=== PATIENT | male | born 1955 | race Caucasian/White ===

== ENCOUNTER 2020-05-17 13:00 | Emergency (ER) | payer MEDICARE, SELFPAY ==
[2020-05-17 14:09] VITALS: BP 119/69; PULSE 82; RESP 18; TEMP 36.8; O2SAT 100; BMI 27.0
[2020-05-17] MEDS: cephALEXin 500 MG CAPSULE PO (14:25)
[2020-05-17] MEDS: predniSONE 20 MG TABLET 60 MG PO (14:25)
[2020-05-17] MEDS: Loratadine 10 MG TABLET PO (14:26)
--- NOTE | 2020-05-17 14:30 | PC.NURSE ---
pt alert and oriented, skin pwd, respirations even and unlabored, pt speaking in full clear sentences, ls clear. pt reports waking up with lower lip, but has a all over body rash that started on Tuesday
[2020-05-17 15:23] LABS: Basophils Percent Auto 0.6 % (0-2); Eosinophils Absolute Auto 0.8 X10*3/uL (0.0-0.4); Eosinophils Percent Auto 11.8 % (0-4); Hematocrit 36.2 % (42-52); Hemoglobin 11.3 g/dl (14.0-18.0); Imm Gran Abs Auto 0.03 X10*3/uL (0.00-0.03); Imm Gran Pct Auto 0.4 % (0.0-0.4); Lymphocytes Absolute Auto 1.1 X10*3/uL (1.2-4.9); Lymphocytes Percent Auto 15.1 % (20-40); MANUAL DIFF FLAG NO; Mean Corpuscular HGB Conc 31.2 g/dl (31.0-36.0); Mean Corpuscular Hemoglobin 27.8 pg (27.0-33.0); Mean Corpuscular Volume 89.2 fL (80-98); Mean Platelet Volume 9.6 fL (9.4-12.4); Monocytes Absolute Auto 0.7 X10*3/uL (0.1-1.2); Monocytes Percent Auto 9.2 % (2-11); Neutrophils Absolute Auto 4.5 X10*3/uL (2.0-8.3); Neutrophils Percent Auto 62.9 % (45-73); Platelet Count 240 X10*3/uL (160-400); Red Blood Count 4.06 X10*6/uL (4.60-5.80); Red Cell Distribution Width 16.9 % (11.0-16.0); White Blood Count 7.1 X10*3/uL (4.8-10.8)
[2020-05-17 15:45] LABS: Anion Gap 11 (12-20); Blood Urea Nitrogen 13 mg/dL (9-16); Calcium 7.8 mg/dL (8.4-10.2); Carbon Dioxide 29 mmol/L (22-29); Chloride 103 mmol/L (96-108); Creatinine Clr Calc Pharmacy 81.5; Estimated Glomerular Filt Rate > 60; Glucose Random 88 mg/dL (60-115); Potassium 3.9 mmol/l (3.3-5.1); Sodium 139 mmol/L (135-145)
[2020-05-17 16:04] VITALS: BP 128/76; PULSE 71; RESP 18; O2SAT 98
--- NOTE | 2020-05-17 16:05 | PC.NURSE ---
pt resting in the stretcher, in no apparent distress at this time, pt reports no improvement after the medication, rash still itchy, no visible change in lip swelling at this time,
--- NOTE | 2020-05-17 16:11 | ED.ALLEREA ---
HPI - Allergic Reaction General Chief complaint: Allergic Reaction Stated complaint: rash Time Seen by Provider: 05/17/20 13:47 History of Present Illness HPI narrative: Patient with 2 complaints 1st complaint is lower lip swelling 1st noted yesterday with no shortness of breath no other facial swelling no swelling inside the throat or the tongue or the mouth no difficulty swallowing Other complaint is several days of an itchy scabby rash on his legs which she has been scratching a lot, both legs have chronic circulatory problems with chronic discolorations and swelling for which she has been followed for a long time, he denies fever denies chills denies pain denies dizziness or weakness Related Data Previous Rx's Medication Instructions Recorded cephalexin [Keflex] 500 mg PO QID 7 Days #28 cap 05/17/20 cetirizine 10 mg PO DAILY 10 Days #10 cap 05/17/20 diphenhydramine HCl [Benadryl] 50 mg PO BEDTIME PRN #20 cap 05/17/20 prednisone 20 mg PO DAILY 6 Days #6 tab 05/17/20 Allergies Allergy/AdvReac Type Severity Reaction Status Date / Time No Known Allergies Allergy Verified 05/17/20 14:14 Review of Systems Review of Systems: Positive for lower extremity rash bilaterally and lower lip swelling Negatives No fever no chills no dizziness no weakness no trouble breathing or swallowing no vision changes no headache no chest pain shortness of breath, no abdominal pain, no bowel or bladder changes, no numbness or weakness [facility] Past Medical History Attestation statement: The following information was validated with the patient. [facility] Narrative: Patient has history of rheumatoid arthritis for which he takes methotrexate, long smoking history, is also being treated for hypocalcemia with oral calcium supplementation Medical History (Updated 05/17/20 @ 16:29 by ZAMZAM Landeros) Arthritis Surgical History (Updated 05/17/20 @ 14:13 by Effie Schaefer) History of back surgery Hx of neck surgery Social History Social History Alcohol intake: never Smoking Status: Current every day smoker Use of substances other than those prescribed or required for medical reasons: No Advance Directives: No Advance Directives Information Provided: No Physical Exam Vital Signs: Vital Signs: Last Vital Signs Temp 98.3 F 05/17/20 14:09 Pulse 71 05/17/20 16:04 Resp 18 05/17/20 16:04 BP 128/76 05/17/20 16:04 Pulse Ox 98 05/17/20 16:04 Body Mass Index 27.0 Patient is A&O x3 comfortable relaxed cooperative no acute distress The lower lip is swollen but there is no swelling inside the mouth the tongue and pharynx are normal and on swollen, he swallows secretions easily breathes easily speaks full sentences in a normal voice, pharynx is clear with no redness or swelling The neck is supple without lymphadenopathy The chest is clear to auscultation bilaterally with full symmetrical equal breath sounds, no respiratory distress The heart no murmur auscultated Abdomen soft nontender Extremities both extremities are mildly swollen with mild edema and bilateral mild redness, there are multiple small scabbed area with on both legs there are 2 larger excoriated scabbed areas on the right leg, there is no calf swelling or tenderness on either leg, ankle and knee joints have full range of motion, there are no bullae, no blisters, no petechia Neuro no focal deficit Course Course Course Narrative: Case was discussed with Dr. Raymundo who agrees rash is most likely allergic as it is associated with the lower lip swelling, the patient is very comfortable Dr. Raymundo recommended antibiotic as well as treatment for allergy as it was very hard to tell if any of the redness on his legs was new so he is treated with Keflex antibiotic as well as prednisone and antihistamine for rash and lower lip swelling Patient was observed in the ER for 2 hours with no progress of his lower lip swelling he remained comfortable with no further swelling, re-examine lungs were clear with full equal symmetrical breath sounds patient is speaking full sentences and exam of his pharynx again was normal with no swelling of tongue or pharynx MDM - Allergic Reaction Lab Data Attestation: I reviewed the patient's lab results. Result diagrams: 05/17/20 15:18 05/17/20 15:18 Labs: Lab Results 05/17/20 05/17/20 Range/Units 15:18 15:18 WBC 7.1 (4.8-10.8) X10*3/uL RBC 4.06 L (4.60-5.80) X10*6/uL Hgb 11.3 L (14.0-18.0) g/dl Hct 36.2 L (42-52) % MCV 89.2 (80-98) fL MCH 27.8 (27.0-33.0) pg MCHC 31.2 (31.0-36.0) g/dl RDW 16.9 H (11.0-16.0) % Plt Count 240 (160-400) X10*3/uL MPV 9.6 (9.4-12.4) fL Immature Gran % (Auto) 0.4 (0.0-0.4) % Neut % (Auto) 62.9 (45-73) % Lymph % (Auto) 15.1 L (20-40) % [place] % (Auto) 9.2 (2-11) % Eos % (Auto) 11.8 H (0-4) % Baso % (Auto) 0.6 (0-2) % Lymph # (Auto) 1.1 L (1.2-4.9) X10*3/uL [place] # (Auto) 0.7 (0.1-1.2) X10*3/uL Eos # (Auto) 0.8 H (0.0-0.4) X10*3/uL Baso # (Auto) 0.0 (0.0-0.2) X10*3/uL Abs Immat Gran (auto) 0.03 (0.00-0.03) X10*3/uL Absolute Neuts (auto) 4.5 (2.0-8.3) X10*3/uL Absolute Nucleated RBC 0.000 (0.0-0.012) X10*3/uL Nucleated RBC % (auto) 0.0 (0.0-0.2) /100WBC Sodium 139 (135-145) mmol/L Potassium 3.9 (3.3-5.1) mmol/l Chloride 103 (96-108) mmol/L Carbon Dioxide 29 (22-29) mmol/L Anion Gap 11 L (12-20) BUN 13 (9-16) mg/dL Creatinine 0.85 (0.5-1.4) mg/dL Estim Creat Clear Calc 81.5 Estimated GFR > 60 Random Glucose 88 (60-115) mg/dL Calcium 7.8 L (8.4-10.2) mg/dL Discharge Plan Discharge Clinical Impression: Allergic reaction Qualifiers: Encounter type: initial encounter Qualified Code(s): T78.40XA - Allergy, unspecified, initial encounter Patient Disposition: Home, Self-Care Additional Instructions: We believe the itchy rash and the lower lip swelling may be an allergic reaction We are treating with antibiotic for possible skin infection in her lower leg as well as prednisone and cetirizine for possible allergic reaction causing rash and lip swelling Follow with primary doctor for re-evaluation next week Return to ER immediately for any worse facial swelling, difficulty breathing, fever, worse pain and swelling in legs any worse condition or any concerns Prescriptions: New prednisone 20 mg tablet 20 mg PO DAILY 6 Days Qty: 6 RF: 0 cetirizine 10 mg capsule 10 mg PO DAILY 10 Days Qty: 10 RF: 0 cephalexin [Keflex] 500 mg capsule 500 mg PO QID 7 Days Qty: 28 RF: 0 diphenhydramine HCl [Benadryl] 25 mg capsule 50 mg PO BEDTIME PRN (Reason: itching) Qty: 20 RF: 0 Interventions: ED Discharge Assessment Last Done: 05/17/20 16:53 Discharge Date/Time: 05/17/20 17:16
== END 2020-05-17 17:16 | disposition home or self-care (01) ==
PROVIDERS: Physician Assistant Medical; Emergency Provider Emergency Medicine; PCP Internal Medicine
DX: L23.9 Allergic contact dermatitis, unspecified cause (principal); F17.200 Nicotine dependence, unspecified, uncomplicated; Z71.6 Tobacco abuse counseling; Z79.899 Other long term (current) drug therapy
CPT/HCPCS: 36415; 80048; 85025; 99283; 99284

== ENCOUNTER 2020-08-05 10:05 | Outpatient (REF) | payer MEDICARE, SELFPAY ==
--- NOTE | ~2020-08-05 | XR_ITS ---
EXAMINATION: XR SHOULDER, RIGHT CLINICAL INFORMATION: Pain right shoulder COMPARISON: None TECHNIQUE: AP external rotation, Grashey, scapular Y, and axillary views of the right shoulder. FINDINGS: There is a displaced fracture right acromion best visualized on axial view. The glenohumeral articulation and the AC joint articulation is maintained normal. The soft tissues are normal XR/XR shoulder RT min 2V IMPRESSION: Mild displaced fracture right acromion. There is no glenohumeral or AC joint dislocation.
== END 2020-08-05 10:06 | disposition home or self-care (01) ==
LOC: HO.HOSX 10:05
PROVIDERS: Visit Provider Orthopaedic Surgery
DX: M25.511 Pain in right shoulder (principal)
CPT/HCPCS: 73030

== ENCOUNTER → 2020-08-06 09:29 | Outpatient (BNVA) | payer MEDICARE, SELFPAY | PROVIDERS: PCP Internal Medicine; Visit Provider Orthopaedic Surgery | DX: S42.124A Nondisplaced fracture of acromial process, right shoulder, initial encounter for closed fracture (principal) | CPT/HCPCS: 99202 ==

== ENCOUNTER 2021-05-05 18:18 | Emergency (ER) | payer MEDICARE, SELFPAY ==
[2021-05-05 18:44] VITALS: BP 146/78; PULSE 74; RESP 16; TEMP 37; O2SAT 97; BMI 22.4
--- NOTE | 2021-05-05 20:10 | ED.WEAKNESS ---
HPI - Weakness General Chief complaint: Weakness Stated complaint: weakness vomiting Time Seen by Provider: 05/05/21 20:10 Source: patient Mode of arrival: ambulatory Limitations: no limitations History of Present Illness HPI Narrative: Patient is on 10 mg oxycodone 3 times a day for chronic back pain been vomiting and having diarrhea for last 2 days today he says that he spilled the oxycodone in the toilet and flushed by mistake and throwing of more worried about it may be he has withdrawal symptoms from oxycodone complaining of abdominal cramping no fever no chills no upper respiratory symptoms had COVID booster 2 days ago Related Data Previous Rx's Medication Instructions Recorded cephalexin 500 mg capsule (Keflex) 500 mg PO QID 7 Days #28 cap 05/17/20 cetirizine 10 mg capsule 10 mg PO DAILY 10 Days #10 cap 05/17/20 diphenhydramine HCl 25 mg capsule 50 mg PO BEDTIME PRN #20 cap 05/17/20 (Benadryl) prednisone 20 mg tablet 20 mg PO DAILY 6 Days #6 tab 05/17/20 ondansetron 4 mg disintegrating 4 mg PO Q6-8H PRN #7 tab 05/05/21 tablet Allergies Allergy/AdvReac Type Severity Reaction Status Date / Time No Known Allergies Allergy Verified 05/17/20 14:14 Review of Systems Review of Systems: Yes all other systems are reviewed and are negative PMFSH Past Medical History Medical History Arthritis Hernia of abdominal wall Surgical History History of back surgery Hx of neck surgery Social History Social History Alcohol intake: never Advance Directives: No Advance Directives Information Provided: Yes Current occupation: Right Handed Physical Exam Vital Signs: Vital Signs: Last Vital Signs Temp 98.6 F 05/05/21 18:44 Pulse 74 05/05/21 18:44 Resp 16 05/05/21 18:44 BP 146/78 H 05/05/21 18:44 Pulse Ox 97 05/05/21 18:44 Body Mass Index 22.4 Appearance: Alert. Oriented X3. No acute distress. Eyes: No pallor or icterus ENT: Pharynx normal. Oral Mucosa moist Neck: Normal inspection. Neck supple. CVS: Normal heart rate and rhythm. Pulses normal. Respiratory: No respiratory distress. Equal air entry bilateral, no wheezing/rales/rhonchi Abdomen: Soft and nontender. Bowel sounds are present, no mass palpable, no CVA tenderness Skin: Skin warm and dry. Normal skin color. Normal skin turgor. Extremities: No lower extremity edema. No calf tenderness Neuro: Oriented X 3. No motor deficit. MDM - Weakness Lab Data Result diagrams: 05/05/21 20:37 05/05/21 20:37 Labs: Lab Results 05/05/21 05/05/21 Range/Units 20:37 20:37 WBC 3.7 L (4.8-10.8) X10*3/uL RBC 4.04 L (4.60-5.80) X10*6/uL Hgb 12.1 L (14.0-18.0) g/dl Hct 36.7 L (42.0-52.0) % MCV 90.8 (80.0-98.0) fL MCH 30.0 (27.0-33.0) pg MCHC 33.0 (31.0-36.0) g/dl RDW 15.3 (11.0-16.0) % Plt Count 163 (160-400) X10*3/uL MPV 10.1 (9.4-12.4) fL Immature Gran % (Auto) 0.3 (0.0-0.4) % Neut % (Auto) 70.7 (45-73) % Lymph % (Auto) 16.3 L (20-40) % [place] % (Auto) 10.3 (2-11) % Eos % (Auto) 1.9 (0-4) % Baso % (Auto) 0.5 (0-2) % Lymph # (Auto) 0.6 L (1.2-4.9) X10*3/uL [place] # (Auto) 0.4 (0.1-1.2) X10*3/uL Eos # (Auto) 0.1 (0.0-0.4) X10*3/uL Baso # (Auto) 0.0 (0.0-0.2) X10*3/uL Abs Immat Gran (auto) 0.01 (0.00-0.03) X10*3/uL Absolute Neuts (auto) 2.6 (2.0-8.3) x10*3/uL Absolute Nucleated RBC 0.000 (0.0-0.012) X10*3/uL Nucleated RBC % (auto) 0.0 (0.0-0.2) /100WBC Sodium 137 (135-145) mmol/L Potassium 4.0 (3.3-5.1) mmol/L Chloride 102 (96-108) mmol/L Carbon Dioxide 26 (22-29) mmol/L Anion Gap 13 (12-20) BUN 12 (9-16) mg/dL Creatinine 0.89 (0.5-1.4) mg/dL Estim Creat Clear Calc 84.0 Estimated GFR > 60 Random Glucose 95 (60-115) mg/dL Calcium 8.5 D (8.4-10.2) mg/dL Total Bilirubin 0.4 (0.0-1.0) mg/dL AST 19 (5-37) U/L ALT 22 (0-40) U/L Alkaline Phosphatase 85 (39-117) U/L Total Protein 6.2 L (6.5-8.0) g/dL Albumin 3.7 (3.5-5.0) g/dL Lipase 15 (8-78) U/L Discharge Plan Discharge Clinical Impression: Gastroenteritis Patient Disposition: Home, Self-Care Instructions: Gastroenteritis (ED) Additional Instructions: Drink plenty of fluids Follow up with PCP if not better Nausea medicine as advised Prescriptions: New ondansetron 4 mg tablet,disintegrating 4 mg PO Q6-8H PRN (Reason: nausea and vomiting) Qty: 7 RF: 0 No Action prednisone 20 mg tablet 20 mg PO DAILY 6 Days Qty: 6 RF: 0 cetirizine 10 mg capsule 10 mg PO DAILY 10 Days Qty: 10 RF: 0 cephalexin [Keflex] 500 mg capsule 500 mg PO QID 7 Days Qty: 28 RF: 0 diphenhydramine HCl [Benadryl] 25 mg capsule 50 mg PO BEDTIME PRN (Reason: itching) Qty: 20 RF: 0 Interventions: ED Discharge Assessment Last Done: 05/05/21 22:40 Discharge Date/Time: 05/05/21 22:41
[2021-05-05] MEDS: Morphine Sulfate 4 MG/ML CARTRIDGE IVPUSH (20:40)
[2021-05-05] MEDS: ondansetron HCL 4 MG/2 ML VIAL IVPUSH (20:40)
[2021-05-05] MEDS: 0.9 % Sodium Chloride 1,000 ML 999 ML IVCONT (20:45)
[2021-05-05 20:51] LABS: MANUAL DIFF FLAG NO
[2021-05-05 20:52] LABS: Basophils Percent Auto 0.5 % (0-2); Eosinophils Absolute Auto 0.1 X10*3/uL (0.0-0.4); Eosinophils Percent Auto 1.9 % (0-4); Hematocrit 36.7 % (42.0-52.0); Hemoglobin 12.1 g/dl (14.0-18.0); Imm Gran Abs Auto 0.01 X10*3/uL (0.00-0.03); Imm Gran Pct Auto 0.3 % (0.0-0.4); Lymphocytes Absolute Auto 0.6 X10*3/uL (1.2-4.9); Lymphocytes Percent Auto 16.3 % (20-40); Mean Corpuscular Volume 90.8 fL (80.0-98.0); Mean Platelet Volume 10.1 fL (9.4-12.4); Monocytes Absolute Auto 0.4 X10*3/uL (0.1-1.2); Monocytes Percent Auto 10.3 % (2-11); Neutrophils Absolute Auto 2.6 x10*3/uL (2.0-8.3); Neutrophils Percent Auto 70.7 % (45-73); Platelet Count 163 X10*3/uL (160-400); Red Blood Count 4.04 X10*6/uL (4.60-5.80); Red Cell Distribution Width 15.3 % (11.0-16.0); White Blood Count 3.7 X10*3/uL (4.8-10.8)
[2021-05-05 21:10] LABS: Alanine Aminotransferase 22 U/L (0-40); Albumin Level 3.7 g/dL (3.5-5.0); Alkaline Phosphatase 85 U/L (39-117); Anion Gap 13 (12-20); Aspartate Amino Transferase 19 U/L (5-37); Bilirubin Total 0.4 mg/dL (0.0-1.0); Blood Urea Nitrogen 12 mg/dL (9-16); Calcium 8.5 mg/dL (8.4-10.2); Carbon Dioxide 26 mmol/L (22-29); Chloride 102 mmol/L (96-108); Estimated Glomerular Filt Rate > 60; Glucose Random 95 mg/dL (60-115); Lipase 15 U/L (8-78); Sodium 137 mmol/L (135-145); Total Protein 6.2 g/dL (6.5-8.0)
[2021-05-05] MEDS: oxyCODONE HCl Immed Release 5 MG TABLET 10 MG PO (22:09)
--- NOTE | 2021-05-05 22:34 | PC.NURSE ---
Since arrival the pt has remained alert and orineted x 3. He arrived for evaluation of nausea and vomiting and diarrhea. While in the ED he received morphoine and Zofran and had good relief of his symptoms. he expressed concern regarding whether or not he may be withdrawing from oxycodone. He has been informed by ER MD that he likely is not and he vrebalizes an understanding of this. no chest pain. No SOb. DC'd at this time. pt is in wheelchair in waiting room waiting for his to pick him up.
== END 2021-05-05 22:41 | disposition home or self-care (01) ==
PROVIDERS: Emergency Provider Internal Medicine; PCP Physician Assistant Medical
DX: K52.9 Noninfective gastroenteritis and colitis, unspecified (principal); R53.1 Weakness; R11.10 Vomiting, unspecified; G89.29 Other chronic pain; Z79.891 Long term (current) use of opiate analgesic
CPT/HCPCS: 36415; 80053; 83690; 85025; 96361; 96374; 96375; 99284; J2270; J2405

== ENCOUNTER 2022-08-25 20:18 | Inpatient (IN) | payer MEDICARE, SELFPAY ==
--- NOTE | ~2022-08-25 | CT_ITS ---
EXAMINATION: CT ABDOMEN AND PELVIS WITH CONTRAST CLINICAL INFORMATION: Epigastric pain COMPARISON: 07/09/2014 TECHNIQUE: Multidetector volumetric images were obtained from the superior aspect of the liver through the pubic symphysis following administration 85 mL of Omnipaque 350 intravenous contrast. Sagittal and coronal reformatted images were obtained on the technologist's workstation. Oral contrast: No This CT examination was performed using dose optimization techniques as appropriate, variously including the following: *Automated exposure control *Adjustment of mA and/or kV according to patient size (this includes techniques or standardized protocols for targeted exams where dose is matched to indication/reason for exam; i.e. extremities or head) *Use of iterative reconstruction technique DLP: 669 mGy-cm FINDINGS: LUNG BASES: Multifocal regions of opacity are present in the bilateral lower lobes and left upper lobe. LIVER, GALLBLADDER, AND BILIARY TREE: The liver is normal in size, shape, and attenuation. No focal hepatic lesion or biliary ductal dilatation is present. The gallbladder is distended with no evidence of radiopaque gallstones, gallbladder wall thickening, or obvious pericholecystic inflammatory changes. PANCREAS: Unremarkable. SPLEEN: Unremarkable. ADRENAL GLANDS: Unremarkable. KIDNEYS AND URETERS: No hydronephrosis or obstructing calculus bilaterally. There are numerous calculi throughout both kidneys measuring up to approximately 0.9 cm in diameter. Numerous hypoattenuating bilateral renal lesions are also present, favoring cysts. However, there is a 1.2 cm exophytic lesion off the lateral right kidney on image 29/87 which is not cystic by CT criteria and does not present previously; solid masses cannot be excluded. BLADDER: Unremarkable. GASTROINTESTINAL TRACT: There is prominent distention of the stomach with gas and fluid as well as dilation of multiple small bowel loops throughout the abdomen in a pattern consistent with small bowel obstruction. Transition from dilated to collapsed small bowel is suspected to occur in the left abdomen as seen on coronal image 35. Colon is nondilated and partially collapsed. No free fluid or free air is seen. ABDOMINAL WALL: No significant hernia is appreciated. LYMPH NODES: Normal. VASCULAR: Scattered atherosclerotic calcifications. PELVIC VISCERA: Unremarkable. OSSEOUS STRUCTURES: Partially visualized thoracolumbar spinal fusion hardware. Chronic-appearing multilevel compression deformities. Right hip arthroplasty hardware noted. CT/CT abdomen pelvis w IV con IMPRESSION: 1. Small bowel obstruction with transition point suspected to lie in the left abdomen. 2. Numerous bilateral renal calculi without hydronephrosis. 3. Numerous hypoattenuating bilateral renal lesions, favoring cysts. However, there is also a 1.2 cm exophytic lesion off the lateral right kidney which is not cystic by CT criteria and does not present previously; solid mass cannot be excluded. Further workup with renal protocol CT or MRI is recommended. 4. Multifocal regions of pulmonary opacity in the bilateral lower lobes and left upper lobe, which may at least partially be due to atelectasis though some superimposed consolidation such as from pneumonia or aspiration may also be present.
--- NOTE | ~2022-08-25 | XR_ITS ---
EXAMINATION: XR CHEST CLINICAL INFORMATION: Chest pain. COMPARISON: 05/13/2008 chest radiographs. TECHNIQUE: Frontal view of the chest was obtained. FINDINGS: Support devices: Multilevel posterior fusion hardware is seen. Kyphotic positioning and low lung volumes and evaluation. There is mild elevation of the left hemidiaphragm. The lungs appear clear. The heart and mediastinal structures are unremarkable. XR/XR chest 1V IMPRESSION: Limited study. No overt CHF or pneumonia.
--- NOTE | ~2022-08-25 | XR_ITS ---
EXAMINATION: XR CHEST CLINICAL INFORMATION: Dyspnea COMPARISON: Chest radiograph 08/25/2022 TECHNIQUE: Frontal view of the chest was obtained. FINDINGS: Bilateral fractured thoracic interlocking spinal rods and multilevel transpedicular screws are noted. Low lung volumes are present with the fourth anterior rib segments terminating projection with the lung bases. The cardiac silhouette is grossly normal in size. No definitive effusions or pneumothoraces are identified. An enteric tube terminates projection with the gastric body. Left lung base spine pulmonary reticular opacities are noted with associated mild vascular indistinctness. Findings are new compared with 08/25/2022. XR/XR chest 1V IMPRESSION: 1. Low lung volumes. 2. Mild left lung base atelectasis and/or consolidation new compared with 08/25/2022. Findings could represent aspiration pneumonitis. 3. Enteric tube terminating within the gastric body.
--- NOTE | ~2022-08-25 | XR_ITS ---
EXAMINATION: XR chest 1V CLINICAL INFORMATION: Shortness of breath COMPARISON: 08/28/2022 TECHNIQUE: XR chest 1V Tubes and lines: Hardware posterior fusion of the dorsal spine in place intact. Lungs and pleura: Redemonstration of diffuse patchy interstitial opacification over the right and left lung suggesting diffuse interstitial infiltrates. There is atelectasis at lung bases. Mild subpulmonic pleural effusions. Heart and mediastinum: The mediastinum is within normal limits.. Bones/soft tissue: Skeletal structures included are normal for patient's age. XR/XR chest 1V IMPRESSION: * Redemonstration of bilateral diffuse interstitial opacification suggesting diffuse interstitial infiltrates. * Atelectasis at lung bases. * Mild subpulmonic pleural effusions.
[2022-08-25 20:28] VITALS: BP 105/72; PULSE 143; RESP 16; TEMP 35.9; O2SAT 91; BMI 31.2
--- NOTE | 2022-08-25 20:29 | ED_ITS ---
HPI - General Adult General Chief complaint: General Medical <Brian HinaCornell - Last Filed: 08/25/22 20:46> Stated complaint: stomach ache for 4 days, vomiting <Brian HinaBollinger - Last Filed: 08/25/22 20:46> Time Seen by Provider: 08/25/22 20:58 <Brian SantamariaBollinger - Last Filed: 08/25/22 20:46> Related Data Home medications: Previous Rx's Medication Instructions Recorded cephalexin 500 mg capsule (Keflex) 500 mg PO QID 7 days #28 caps 05/17/20 cetirizine 10 mg capsule 10 mg PO DAILY 10 days #10 caps 05/17/20 diphenhydramine HCl 25 mg capsule 50 mg PO BEDTIME PRN itching #20 05/17/20 (Benadryl) caps prednisone 20 mg tablet 20 mg PO DAILY 6 days #6 tabs 05/17/20 ondansetron 4 mg disintegrating 4 mg PO Q6-8H PRN nausea and 05/05/21 tablet vomiting #7 tabs <Brian Landry - Last Filed: 08/25/22 20:46> Allergies/adverse reactions: Allergies Allergy/AdvReac Type Severity Reaction Status Date / Time No Known Allergies Allergy Verified 08/25/22 20:28 <Brian HinaCornell - Last Filed: 08/25/22 20:46> PMF Past Medical History Medical History: Medical History Arthritis Hernia of abdominal wall <Brian SantamariaBollinger - Last Filed: 08/25/22 20:46> Surgical History: Surgical History History of back surgery Hx of neck surgery <Brian SantamariaCornell - Last Filed: 08/25/22 20:46> Social History Social History: Social History Alcohol intake: never Smoked in Last 30 Days: Yes Use of substances other than those prescribed or required for medical reasons: No Advance Directives: Yes Advance Directives Information Provided: No Advance Directives on File: No Current occupation: Right Handed <Brian Landry - Last Filed: 08/25/22 20:46> Physical Exam ED Vital Signs: Vital Signs - 24 hr 08/25/22 20:28 08/25/22 21:39 08/25/22 22:56 Temperature 96.6 F L 98.4 F Pulse Rate 143 H 103 H Respiratory Rate 16 16 24 H Blood Pressure 105/72 109/76 Pulse Oximetry 91 L 97 Oxygen Delivery Method Room Air Nasal Cannula Oxygen Flow Rate 3 08/25/22 23:11 08/25/22 23:32 Temperature 97.6 F Pulse Rate 108 H Respiratory Rate 14 16 Blood Pressure 127/86 Pulse Oximetry 93 Oxygen Delivery Method Nasal Cannula Oxygen Flow Rate 2.5 BMI result Body Mass Index 31.2 <Brian Landry - Last Filed: 08/25/22 20:46> Vital Signs - 24 hr 08/25/22 20:28 08/25/22 21:39 08/25/22 22:56 Temperature 96.6 F L 98.4 F Pulse Rate 143 H 103 H Respiratory Rate 16 16 24 H Blood Pressure 105/72 109/76 Pulse Oximetry 91 L 97 Oxygen Delivery Method Room Air Nasal Cannula Oxygen Flow Rate 3 08/25/22 23:11 08/25/22 23:32 Temperature 97.6 F Pulse Rate 108 H Respiratory Rate 14 16 Blood Pressure 127/86 Pulse Oximetry 93 Oxygen Delivery Method Nasal Cannula Oxygen Flow Rate 2.5 BMI result Body Mass Index 31.2 <Navin Edmond MD - Last Filed: 08/26/22 03:42> Course Course Course Narrative: 67-year-old male presents for evaluation of abdominal pain associated nausea and vomiting from last 5 days. Not actively vomiting in triage. During triage patient was found to have a heart rate of 136 in oxygen saturation to be 92%. Had on EKG, Coagulation studies, magnesium and a chest x-ray. The patient denies any chest pain currently <Brian Landry - Last Filed: 08/25/22 20:46> Reevaluation(s) Reevaluation #1: RN asked for NG tube placement unable to put , conscious sedation was tried with 100 mg of propofol without any success patient started vomiting procedure abandoned. <Navin Edmond MD - Last Filed: 08/26/22 03:42> Time: 03:20 <Navin Edmond MD - Last Filed: 08/26/22 03:42> Medications Administered Discontinued Medications Generic Name Dose Route Start Last Admin Trade Name Adyq PRN Reason Stop Dose Admin Hydromorphone HCl 0.5 mg 08/25/22 21:36 08/25/22 21:39 Hydromorphone Hcl 0.5 Mg/0.5 Ml Syringe IVPUSH 08/25/22 21:37 0.5 mg ONCE ONE Administration Protocol Hydromorphone HCl 0.5 mg 08/25/22 22:59 08/25/22 23:11 Hydromorphone Hcl 0.5 Mg/0.5 Ml Syringe IVPUSH 08/25/22 23:00 0.5 mg ONCE ONE Administration Protocol Sodium Chloride 1,000 mls @ 999 mls/hr 08/25/22 21:15 08/25/22 21:28 Ns IV 08/25/22 22:15 999 mls/hr .Q1H1M RADHA Administration Sodium Chloride 1,000 mls @ 999 mls/hr 08/25/22 21:15 08/25/22 21:28 Ns IV 08/25/22 22:15 999 mls/hr .Q1H1M RADHA Administration Ceftriaxone Sodium 1 gm/ 50 mls @ 100 mls/hr 08/25/22 21:37 08/25/22 22:31 Sodium Chloride IV 08/25/22 22:06 100 mls/hr ONCE ONE Administration Metronidazole 500 mg in 100 mls @ 100 mls/hr 08/25/22 21:37 08/25/22 22:33 Flagyl IV 08/25/22 22:36 100 mls/hr ONCE ONE Administration Sodium Chloride 1,000 mls @ 999 mls/hr 08/26/22 00:30 08/26/22 02:59 Ns IV 08/26/22 01:30 999 mls/hr .Q1H1M RADHA Administration Sodium Chloride 1,000 mls @ 999 mls/hr 08/26/22 01:45 08/26/22 02:59 Ns IV 08/26/22 02:45 999 mls/hr .Q1H1M RADHA Administration Iohexol 85 ml 08/26/22 00:09 08/26/22 00:10 Iohexol 350 Mg/Ml 100 Ml Infus..Btl IV 08/26/22 00:10 85 ml ONCE ONE Administration Metoclopramide HCl 10 mg 08/25/22 22:59 08/25/22 23:11 Metoclopramide Hcl 10 Mg/2 Ml Vial IVPUSH 08/25/22 23:00 10 mg ONCE ONE Administration Ondansetron HCl 4 mg 08/25/22 21:35 08/25/22 21:39 Ondansetron Hcl 4 Mg/2 Ml Vial IVPUSH 08/25/22 21:36 4 mg ONCE ONE Administration Propofol 50 mg 08/26/22 02:45 08/26/22 03:32 Propofol 200 Mg/20 Ml Vial IVPUSH 08/26/22 02:46 50 mg ONCE ONE Administration <Brian Landry - Last Filed: 08/25/22 20:46> Medications Administered Discontinued Medications Generic Name Dose Route Start Last Admin Trade Name Freq PRN Reason Stop Dose Admin Hydromorphone HCl 0.5 mg 08/25/22 21:36 08/25/22 21:39 Hydromorphone Hcl 0.5 Mg/0.5 Ml Syringe IVPUSH 08/25/22 21:37 0.5 mg ONCE ONE Administration Protocol Hydromorphone HCl 0.5 mg 08/25/22 22:59 08/25/22 23:11 Hydromorphone Hcl 0.5 Mg/0.5 Ml Syringe IVPUSH 08/25/22 23:00 0.5 mg ONCE ONE Administration Protocol Sodium Chloride 1,000 mls @ 999 mls/hr 08/25/22 21:15 08/25/22 21:28 Ns IV 08/25/22 22:15 999 mls/hr .Q1H1M RADHA Administration Sodium Chloride 1,000 mls @ 999 mls/hr 08/25/22 21:15 08/25/22 21:28 Ns IV 08/25/22 22:15 999 mls/hr .Q1H1M RADHA Administration Ceftriaxone Sodium 1 gm/ 50 mls @ 100 mls/hr 08/25/22 21:37 08/25/22 22:31 Sodium Chloride IV 08/25/22 22:06 100 mls/hr ONCE ONE Administration Metronidazole 500 mg in 100 mls @ 100 mls/hr 08/25/22 21:37 08/25/22 22:33 Flagyl IV 08/25/22 22:36 100 mls/hr ONCE ONE Administration Sodium Chloride 1,000 mls @ 999 mls/hr 08/26/22 00:30 08/26/22 02:59 Ns IV 08/26/22 01:30 999 mls/hr .Q1H1M RADHA Administration Sodium Chloride 1,000 mls @ 999 mls/hr 08/26/22 01:45 08/26/22 02:59 Ns IV 08/26/22 02:45 999 mls/hr .Q1H1M RADHA Administration Iohexol 85 ml 08/26/22 00:09 08/26/22 00:10 Iohexol 350 Mg/Ml 100 Ml Infus..Btl IV 08/26/22 00:10 85 ml ONCE ONE Administration Metoclopramide HCl 10 mg 08/25/22 22:59 08/25/22 23:11 Metoclopramide Hcl 10 Mg/2 Ml Vial IVPUSH 08/25/22 23:00 10 mg ONCE ONE Administration Ondansetron HCl 4 mg 08/25/22 21:35 08/25/22 21:39 Ondansetron Hcl 4 Mg/2 Ml Vial IVPUSH 08/25/22 21:36 4 mg ONCE ONE Administration Propofol 50 mg 08/26/22 02:45 08/26/22 03:32 Propofol 200 Mg/20 Ml Vial IVPUSH 08/26/22 02:46 50 mg ONCE ONE Administration <Navin Edmond MD - Last Filed: 08/26/22 03:42> Procedures Procedural Sedation Indication: other <Navin Edmond MD - Last Filed: 08/26/22 03:42> Presedation Evaluation: NG tube placement <Navin Edmond MD - Last Filed: 08/26/22 03:42> ASA Class: III <Navin Edmond MD - Last Filed: 08/26/22 03:42> Mallampati Class: III <Navin Edmond MD - Last Filed: 08/26/22 03:42> Preparation: library monitor applied and pulse oximeter <Navin Edmond MD - Last Filed: 08/26/22 03:42> IV Propofol dose (mg): 100 <Navin Edmond MD - Last Filed: 08/26/22 03:42> Patient Tolerated Procedure: well <Navin Edmond MD - Last Filed: 08/26/22 03:42> Complications: none <Navin Edmond MD - Last Filed: 08/26/22 03:42> Interventions: suctioning <Navin Edmond MD - Last Filed: 08/26/22 03:42> Medical Decision Making Lab Data Result Diagrams: 08/25/22 21:06 08/25/22 21:06 <Brian Landry - Last Filed: 08/25/22 20:46> Labs: Lab Results 08/25/22 08/25/22 08/25/22 Range/Units 21:05 21:06 21:06 WBC 8.2 (4.8-10.8) X10*3/uL RBC 4.95 D (4.60-5.80) X10*6/uL Hgb 13.9 L (14.0-18.0) g/dl Hct 42.4 (42.0-52.0) % MCV 85.7 (80.0-98.0) fL MCH 28.1 (27.0-33.0) pg MCHC 32.8 (31.0-36.0) g/dl RDW 14.7 (11.0-16.0) % Plt Count 270 D (160-400) X10*3/uL MPV 10.4 (9.4-12.4) fL Immature Gran % (Auto) 0.2 (0.0-0.4) % Neut % (Auto) 86.4 H (45-73) % Lymph % (Auto) 7.2 L (20-40) % [place] % (Auto) 5.8 (2-11) % Eos % (Auto) 0.0 (0-4) % Baso % (Auto) 0.4 (0-2) % Lymph # (Auto) 0.6 L (1.2-4.9) X10*3/uL [place] # (Auto) 0.5 (0.1-1.2) X10*3/uL Eos # (Auto) 0.0 (0.0-0.4) X10*3/uL Baso # (Auto) 0.0 (0.0-0.2) X10*3/uL Abs Immat Gran (auto) 0.02 (0.00-0.03) X10*3/uL Absolute Neuts (auto) 7.1 (2.0-8.3) x10*3/uL Absolute Nucleated RBC 0.000 (0.0-0.012) X10*3/uL Nucleated RBC % (auto) 0.0 (0.0-0.2) /100WBC PT (10.0-13.1) SEC INR (0.9-1.1) APTT (26.0-36.4) SEC Sodium 137 (135-145) mmol/L Potassium 4.5 (3.3-5.1) mmol/L Chloride 96 (96-108) mmol/L Carbon Dioxide 24 (22-29) mmol/L Anion Gap 22 H (12-20) BUN 33 H (9-16) mg/dL Creatinine 1.61 H (0.5-1.4) mg/dL Estim Creat Clear Calc 36.1 Estimated GFR 43 Random Glucose 164 H (60-115) mg/dL Lactic Acid 2.2 H* (0.5-2.0) mmol/L Lactic Acid F/U @ 2Hr (0.5-2.0) mmol/L Calcium 9.4 D (8.4-10.2) mg/dL Magnesium (1.6-2.6) mg/dL Total Bilirubin 1.3 H (0.0-1.0) mg/dL AST 14 (5-37) U/L ALT 14 (0-40) U/L Alkaline Phosphatase 75 (39-117) U/L Troponin I High Sens (<3.5-35.0) ng/L Total Protein 7.5 (6.5-8.0) g/dL Albumin 4.4 (3.5-5.0) g/dL Lipase 46 (8-78) U/L Influenza Type A (PCR) (Negative) Influenza Type B (PCR) (Negative) RSV RNA Qual (PCR) (Negative) SARS-CoV-2 RNA (RT-PCR) (Negative) 08/25/22 08/25/22 08/25/22 Range/Units 21:06 21:06 21:06 WBC (4.8-10.8) X10*3/uL RBC (4.60-5.80) X10*6/uL Hgb (14.0-18.0) g/dl Hct (42.0-52.0) % MCV (80.0-98.0) fL MCH (27.0-33.0) pg MCHC (31.0-36.0) g/dl RDW (11.0-16.0) % Plt Count (160-400) X10*3/uL MPV (9.4-12.4) fL Immature Gran % (Auto) (0.0-0.4) % Neut % (Auto) (45-73) % Lymph % (Auto) (20-40) % [place] % (Auto) (2-11) % Eos % (Auto) (0-4) % Baso % (Auto) (0-2) % Lymph # (Auto) (1.2-4.9) X10*3/uL [place] # (Auto) (0.1-1.2) X10*3/uL Eos # (Auto) (0.0-0.4) X10*3/uL Baso # (Auto) (0.0-0.2) X10*3/uL Abs Immat Gran (auto) (0.00-0.03) X10*3/uL Absolute Neuts (auto) (2.0-8.3) x10*3/uL Absolute Nucleated RBC (0.0-0.012) X10*3/uL Nucleated RBC % (auto) (0.0-0.2) /100WBC PT 11.5 (10.0-13.1) SEC INR 1.0 (0.9-1.1) APTT 28.8 (26.0-36.4) SEC Sodium (135-145) mmol/L Potassium (3.3-5.1) mmol/L Chloride (96-108) mmol/L Carbon Dioxide (22-29) mmol/L Anion Gap (12-20) BUN (9-16) mg/dL Creatinine (0.5-1.4) mg/dL Estim Creat Clear Calc Estimated GFR Random Glucose (60-115) mg/dL Lactic Acid (0.5-2.0) mmol/L Lactic Acid F/U @ 2Hr (0.5-2.0) mmol/L Calcium (8.4-10.2) mg/dL Magnesium 1.9 (1.6-2.6) mg/dL Total Bilirubin (0.0-1.0) mg/dL AST (5-37) U/L ALT (0-40) U/L Alkaline Phosphatase (39-117) U/L Troponin I High Sens 36.4 H (<3.5-35.0) ng/L Total Protein (6.5-8.0) g/dL Albumin (3.5-5.0) g/dL Lipase (8-78) U/L Influenza Type A (PCR) (Negative) Influenza Type B (PCR) (Negative) RSV RNA Qual (PCR) (Negative) SARS-CoV-2 RNA (RT-PCR) (Negative) 08/25/22 08/26/22 Range/Units 21:50 01:48 WBC (4.8-10.8) X10*3/uL RBC (4.60-5.80) X10*6/uL Hgb (14.0-18.0) g/dl Hct (42.0-52.0) % MCV (80.0-98.0) fL MCH (27.0-33.0) pg MCHC (31.0-36.0) g/dl RDW (11.0-16.0) % Plt Count (160-400) X10*3/uL MPV (9.4-12.4) fL Immature Gran % (Auto) (0.0-0.4) % Neut % (Auto) (45-73) % Lymph % (Auto) (20-40) % [place] % (Auto) (2-11) % Eos % (Auto) (0-4) % Baso % (Auto) (0-2) % Lymph # (Auto) (1.2-4.9) X10*3/uL [place] # (Auto) (0.1-1.2) X10*3/uL Eos # (Auto) (0.0-0.4) X10*3/uL Baso # (Auto) (0.0-0.2) X10*3/uL Abs Immat Gran (auto) (0.00-0.03) X10*3/uL Absolute Neuts (auto) (2.0-8.3) x10*3/uL Absolute Nucleated RBC (0.0-0.012) X10*3/uL Nucleated RBC % (auto) (0.0-0.2) /100WBC PT (10.0-13.1) SEC INR (0.9-1.1) APTT (26.0-36.4) SEC Sodium (135-145) mmol/L Potassium (3.3-5.1) mmol/L Chloride (96-108) mmol/L Carbon Dioxide (22-29) mmol/L Anion Gap (12-20) BUN (9-16) mg/dL Creatinine (0.5-1.4) mg/dL Estim Creat Clear Calc Estimated GFR Random Glucose (60-115) mg/dL Lactic Acid (0.5-2.0) mmol/L Lactic Acid F/U @ 2Hr 1.3 (0.5-2.0) mmol/L Calcium (8.4-10.2) mg/dL Magnesium (1.6-2.6) mg/dL Total Bilirubin (0.0-1.0) mg/dL AST (5-37) U/L ALT (0-40) U/L Alkaline Phosphatase (39-117) U/L Troponin I High Sens (<3.5-35.0) ng/L Total Protein (6.5-8.0) g/dL Albumin (3.5-5.0) g/dL Lipase (8-78) U/L Influenza Type A (PCR) NEGATIVE (Negative) Influenza Type B (PCR) NEGATIVE (Negative) RSV RNA Qual (PCR) NEGATIVE (Negative) SARS-CoV-2 RNA (RT-PCR) NEGATIVE (Negative) <Brian Landry - Last Filed: 08/25/22 20:46> Lab Results 08/25/22 08/25/22 08/25/22 Range/Units 21:05 21:06 21:06 WBC 8.2 (4.8-10.8) X10*3/uL RBC 4.95 D (4.60-5.80) X10*6/uL Hgb 13.9 L (14.0-18.0) g/dl Hct 42.4 (42.0-52.0) % MCV 85.7 (80.0-98.0) fL MCH 28.1 (27.0-33.0) pg MCHC 32.8 (31.0-36.0) g/dl RDW 14.7 (11.0-16.0) % Plt Count 270 D (160-400) X10*3/uL MPV 10.4 (9.4-12.4) fL Immature Gran % (Auto) 0.2 (0.0-0.4) % Neut % (Auto) 86.4 H (45-73) % Lymph % (Auto) 7.2 L (20-40) % [place] % (Auto) 5.8 (2-11) % Eos % (Auto) 0.0 (0-4) % Baso % (Auto) 0.4 (0-2) % Lymph # (Auto) 0.6 L (1.2-4.9) X10*3/uL [place] # (Auto) 0.5 (0.1-1.2) X10*3/uL Eos # (Auto) 0.0 (0.0-0.4) X10*3/uL Baso # (Auto) 0.0 (0.0-0.2) X10*3/uL Abs Immat Gran (auto) 0.02 (0.00-0.03) X10*3/uL Absolute Neuts (auto) 7.1 (2.0-8.3) x10*3/uL Absolute Nucleated RBC 0.000 (0.0-0.012) X10*3/uL Nucleated RBC % (auto) 0.0 (0.0-0.2) /100WBC PT (10.0-13.1) SEC INR (0.9-1.1) APTT (26.0-36.4) SEC Sodium 137 (135-145) mmol/L Potassium 4.5 (3.3-5.1) mmol/L Chloride 96 (96-108) mmol/L Carbon Dioxide 24 (22-29) mmol/L Anion Gap 22 H (12-20) BUN 33 H (9-16) mg/dL Creatinine 1.61 H (0.5-1.4) mg/dL Estim Creat Clear Calc 36.1 Estimated GFR 43 Random Glucose 164 H (60-115) mg/dL Lactic Acid 2.2 H* (0.5-2.0) mmol/L Lactic Acid F/U @ 2Hr (0.5-2.0) mmol/L Calcium 9.4 D (8.4-10.2) mg/dL Magnesium (1.6-2.6) mg/dL Total Bilirubin 1.3 H (0.0-1.0) mg/dL AST 14 (5-37) U/L ALT 14 (0-40) U/L Alkaline Phosphatase 75 (39-117) U/L Troponin I High Sens (<3.5-35.0) ng/L Total Protein 7.5 (6.5-8.0) g/dL Albumin 4.4 (3.5-5.0) g/dL Lipase 46 (8-78) U/L Influenza Type A (PCR) (Negative) Influenza Type B (PCR) (Negative) RSV RNA Qual (PCR) (Negative) SARS-CoV-2 RNA (RT-PCR) (Negative) 08/25/22 08/25/22 08/25/22 Range/Units 21:06 21:06 21:06 WBC (4.8-10.8) X10*3/uL RBC (4.60-5.80) X10*6/uL Hgb (14.0-18.0) g/dl Hct (42.0-52.0) % MCV (80.0-98.0) fL MCH (27.0-33.0) pg MCHC (31.0-36.0) g/dl RDW (11.0-16.0) % Plt Count (160-400) X10*3/uL MPV (9.4-12.4) fL Immature Gran % (Auto) (0.0-0.4) % Neut % (Auto) (45-73) % Lymph % (Auto) (20-40) % [place] % (Auto) (2-11) % Eos % (Auto) (0-4) % Baso % (Auto) (0-2) % Lymph # (Auto) (1.2-4.9) X10*3/uL [place] # (Auto) (0.1-1.2) X10*3/uL Eos # (Auto) (0.0-0.4) X10*3/uL Baso # (Auto) (0.0-0.2) X10*3/uL Abs Immat Gran (auto) (0.00-0.03) X10*3/uL Absolute Neuts (auto) (2.0-8.3) x10*3/uL Absolute Nucleated RBC (0.0-0.012) X10*3/uL Nucleated RBC % (auto) (0.0-0.2) /100WBC PT 11.5 (10.0-13.1) SEC INR 1.0 (0.9-1.1) APTT 28.8 (26.0-36.4) SEC Sodium (135-145) mmol/L Potassium (3.3-5.1) mmol/L Chloride (96-108) mmol/L Carbon Dioxide (22-29) mmol/L Anion Gap (12-20) BUN (9-16) mg/dL Creatinine (0.5-1.4) mg/dL Estim Creat Clear Calc Estimated GFR Random Glucose (60-115) mg/dL Lactic Acid (0.5-2.0) mmol/L Lactic Acid F/U @ 2Hr (0.5-2.0) mmol/L Calcium (8.4-10.2) mg/dL Magnesium 1.9 (1.6-2.6) mg/dL Total Bilirubin (0.0-1.0) mg/dL AST (5-37) U/L ALT (0-40) U/L Alkaline Phosphatase (39-117) U/L Troponin I High Sens 36.4 H (<3.5-35.0) ng/L Total Protein (6.5-8.0) g/dL Albumin (3.5-5.0) g/dL Lipase (8-78) U/L Influenza Type A (PCR) (Negative) Influenza Type B (PCR) (Negative) RSV RNA Qual (PCR) (Negative) SARS-CoV-2 RNA (RT-PCR) (Negative) 08/25/22 08/26/22 Range/Units 21:50 01:48 WBC (4.8-10.8) X10*3/uL RBC (4.60-5.80) X10*6/uL Hgb (14.0-18.0) g/dl Hct (42.0-52.0) % MCV (80.0-98.0) fL MCH (27.0-33.0) pg MCHC (31.0-36.0) g/dl RDW (11.0-16.0) % Plt Count (160-400) X10*3/uL MPV (9.4-12.4) fL Immature Gran % (Auto) (0.0-0.4) % Neut % (Auto) (45-73) % Lymph % (Auto) (20-40) % [place] % (Auto) (2-11) % Eos % (Auto) (0-4) % Baso % (Auto) (0-2) % Lymph # (Auto) (1.2-4.9) X10*3/uL [place] # (Auto) (0.1-1.2) X10*3/uL Eos # (Auto) (0.0-0.4) X10*3/uL Baso # (Auto) (0.0-0.2) X10*3/uL Abs Immat Gran (auto) (0.00-0.03) X10*3/uL Absolute Neuts (auto) (2.0-8.3) x10*3/uL Absolute Nucleated RBC (0.0-0.012) X10*3/uL Nucleated RBC % (auto) (0.0-0.2) /100WBC PT (10.0-13.1) SEC INR (0.9-1.1) APTT (26.0-36.4) SEC Sodium (135-145) mmol/L Potassium (3.3-5.1) mmol/L Chloride (96-108) mmol/L Carbon Dioxide (22-29) mmol/L Anion Gap (12-20) BUN (9-16) mg/dL Creatinine (0.5-1.4) mg/dL Estim Creat Clear Calc Estimated GFR Random Glucose (60-115) mg/dL Lactic Acid (0.5-2.0) mmol/L Lactic Acid F/U @ 2Hr 1.3 (0.5-2.0) mmol/L Calcium (8.4-10.2) mg/dL Magnesium (1.6-2.6) mg/dL Total Bilirubin (0.0-1.0) mg/dL AST (5-37) U/L ALT (0-40) U/L Alkaline Phosphatase (39-117) U/L Troponin I High Sens (<3.5-35.0) ng/L Total Protein (6.5-8.0) g/dL Albumin (3.5-5.0) g/dL Lipase (8-78) U/L Influenza Type A (PCR) NEGATIVE (Negative) Influenza Type B (PCR) NEGATIVE (Negative) RSV RNA Qual (PCR) NEGATIVE (Negative) SARS-CoV-2 RNA (RT-PCR) NEGATIVE (Negative) <Navin Edmond MD - Last Filed: 08/26/22 03:42> Discharge Plan Discharge Clinical Impression: Acute dehydration, Acute renal failure, Complete small bowel obstruction <Brian Landry - Last Filed: 08/25/22 20:46> Patient Disposition: Admitted As Inpatient <Brian Landry - Last Filed: 08/25/22 20:46>
--- NOTE | 2022-08-25 20:39 | ECG_ITS ---
Test Reason : TACHYCARDIA Blood Pressure : / mmHG Vent. Rate : 138 BPM Atrial Rate : 138 BPM P-R Int : 114 ms QRS Dur : 112 ms QT Int : 304 ms P-R-T Axes : 022 -13 001 degrees QTc Int : 460 ms Sinus tachycardia Right bundle branch block Abnormal ECG When compared with ECG of 18-OCT-2003 09:28, Vent. rate has increased BY 77 BPM Right bundle branch block is now Present Referred By: Brian Landry Electronically Signed By:MAYRA ETIENNE MD
--- NOTE | 2022-08-25 21:08 | ED.GENADULT ---
HPI - General Adult General Chief complaint: General Medical Stated complaint: stomach ache for 4 days, vomiting Time Seen by Provider: 08/25/22 20:58 History of Present Illness HPI narrative: Patient is a 67-year-old male presents today with having abdominal pain mainly over the epigastric area having intense nausea vomiting. Unable to tolerate fluids. Patient from home. No fever no chills. Positive coughing upper respiratory symptoms. Positive history of rheumatoid arthritis. Patient baseline is on steroid and methotrexate at home. No fever no chills. Patient is vaccinated for COVID. No history of abdominal surgery in the past. No history of bowel obstructions in the past. No history of pancreatitis. Denies any alcohol use. Related Data Previous Rx's Medication Instructions Recorded cephalexin 500 mg capsule (Keflex) 500 mg PO QID 7 days #28 caps 05/17/20 cetirizine 10 mg capsule 10 mg PO DAILY 10 days #10 caps 05/17/20 diphenhydramine HCl 25 mg capsule 50 mg PO BEDTIME PRN itching #20 05/17/20 (Benadryl) caps prednisone 20 mg tablet 20 mg PO DAILY 6 days #6 tabs 05/17/20 ondansetron 4 mg disintegrating 4 mg PO Q6-8H PRN nausea and 05/05/21 tablet vomiting #7 tabs Allergies Allergy/AdvReac Type Severity Reaction Status Date / Time No Known Allergies Allergy Verified 08/25/22 20:28 Review of Systems Review of Systems: Positive abdominal pain nausea vomiting. Positive coughing congestion upper respiratory symptoms. Yes all other systems are reviewed and are negative PMFSH Past Medical History Attestation statement: The following information was validated with the patient. Medical History Arthritis Hernia of abdominal wall Surgical History History of back surgery Hx of neck surgery Social History Social History Alcohol intake: never Smoked in Last 30 Days: Yes Use of substances other than those prescribed or required for medical reasons: No Advance Directives: Yes Advance Directives Information Provided: No Advance Directives on File: No Current occupation: Right Handed Physical Exam ED Vital Signs: Vital Signs - 24 hr 08/25/22 20:28 08/25/22 21:39 08/25/22 22:56 Temperature 96.6 F L 98.4 F Pulse Rate 143 H 103 H Respiratory Rate 16 16 24 H Blood Pressure 105/72 109/76 Pulse Oximetry 91 L 97 Oxygen Delivery Method Room Air Nasal Cannula Oxygen Flow Rate 3 08/25/22 23:11 08/25/22 23:32 Temperature 97.6 F Pulse Rate 108 H Respiratory Rate 14 16 Blood Pressure 127/86 Pulse Oximetry 93 Oxygen Delivery Method Nasal Cannula Oxygen Flow Rate 2.5 BMI result Body Mass Index 31.2 Appearance: Alert. Oriented X3. No acute distress. Eyes: Pupils equal, round and reactive to light. ENT: Pharynx normal. Neck: Normal inspection. Neck supple. No lymph nodes noted. No crepitus CVS: Tachycardic and regular Respiratory: No respiratory distress. Breath sounds normal. No Wheezing. No rales Abdomen: Epigastric tenderness no rebound or guarding Skin: Skin warm and dry. Normal skin color. Normal skin turgor. Extremities: No lower extremity edema. Neurovascular intact to all extremities. No Lacerations. No Rash Neuro: Oriented X 3. No motor deficit. No sensory deficit. Moving all extermities. No slurred speech Medications Administered Discontinued Medications Generic Name Dose Route Start Last Admin Trade Name Freq PRN Reason Stop Dose Admin Hydromorphone HCl 0.5 mg 08/25/22 21:36 08/25/22 21:39 Hydromorphone Hcl 0.5 Mg/0.5 Ml Syringe IVPUSH 08/25/22 21:37 0.5 mg ONCE ONE Administration Protocol Hydromorphone HCl 0.5 mg 08/25/22 22:59 08/25/22 23:11 Hydromorphone Hcl 0.5 Mg/0.5 Ml Syringe IVPUSH 08/25/22 23:00 0.5 mg ONCE ONE Administration Protocol Sodium Chloride 1,000 mls @ 999 mls/hr 08/25/22 21:15 08/25/22 21:28 Ns IV 08/25/22 22:15 999 mls/hr .Q1H1M RADHA Administration Sodium Chloride 1,000 mls @ 999 mls/hr 08/25/22 21:15 08/25/22 21:28 Ns IV 08/25/22 22:15 999 mls/hr .Q1H1M RADHA Administration Ceftriaxone Sodium 1 gm/ 50 mls @ 100 mls/hr 08/25/22 21:37 08/25/22 22:31 Sodium Chloride IV 08/25/22 22:06 100 mls/hr ONCE ONE Administration Metronidazole 500 mg in 100 mls @ 100 mls/hr 08/25/22 21:37 08/25/22 22:33 Flagyl IV 08/25/22 22:36 100 mls/hr ONCE ONE Administration Iohexol 85 ml 08/26/22 00:09 08/26/22 00:10 Iohexol 350 Mg/Ml 100 Ml Infus..Btl IV 08/26/22 00:10 85 ml ONCE ONE Administration Metoclopramide HCl 10 mg 08/25/22 22:59 08/25/22 23:11 Metoclopramide Hcl 10 Mg/2 Ml Vial IVPUSH 08/25/22 23:00 10 mg ONCE ONE Administration Ondansetron HCl 4 mg 08/25/22 21:35 08/25/22 21:39 Ondansetron Hcl 4 Mg/2 Ml Vial IVPUSH 08/25/22 21:36 4 mg ONCE ONE Administration Medical Decision Making Medical Decision Making MDM Narrative: Positive nausea vomiting generalized malaise weakness. No history of abdominal surgery in the past. Symptoms been ongoing for last 3-4 days. Patient's EKG showed a sinus pattern heart rate was approximately 140. No acute ST segment elevation. Given IV fluid patient's heart rate came down gradually. No distress. CT scan of the abdomen pelvis was done. Radiologist reading was that patient has a small-bowel obstruction. Question cause of the small bowel obstruction. Patient read discussed with the surgical team. There is no abscess evidence of abscess perforation. There is no evidence of abdominal aortic aneurysm on CT. Patient's heart rate has come down nicely to approximately 105. Finding was discussed with patient. Joint decision was made to admit patient. Patient also complaining of coughing upper respiratory symptoms. Chest x-ray was negative. Flu RSV COVID were all negative. 01:41 Patient's lactate is slightly elevated at 2.2. This is not due to sepsis. It is due to small-bowel obstruction causing dehydration. Differential Diagnosis Differential Diagnoses: The differential diagnosis associated with the presentation includes Gastritis, obstruction, abscess, perforation, diverticulitis, biliary issues, cardiac issue Admission/Observation Consideration of admission/observation: Escalation of care including admission/observation considered Consult Healthcare Provider Surgery Lab Data MDM Lab Attestation statement: I reviewed the patient's lab results. 08/25/22 21:06 08/25/22 21:06 Labs: Lab Results 08/25/22 08/25/22 08/25/22 Range/Units 21:05 21:06 21:06 WBC 8.2 (4.8-10.8) X10*3/uL RBC 4.95 D (4.60-5.80) X10*6/uL Hgb 13.9 L (14.0-18.0) g/dl Hct 42.4 (42.0-52.0) % MCV 85.7 (80.0-98.0) fL MCH 28.1 (27.0-33.0) pg MCHC 32.8 (31.0-36.0) g/dl RDW 14.7 (11.0-16.0) % Plt Count 270 D (160-400) X10*3/uL MPV 10.4 (9.4-12.4) fL Immature Gran % (Auto) 0.2 (0.0-0.4) % Neut % (Auto) 86.4 H (45-73) % Lymph % (Auto) 7.2 L (20-40) % [place] % (Auto) 5.8 (2-11) % Eos % (Auto) 0.0 (0-4) % Baso % (Auto) 0.4 (0-2) % Lymph # (Auto) 0.6 L (1.2-4.9) X10*3/uL [place] # (Auto) 0.5 (0.1-1.2) X10*3/uL Eos # (Auto) 0.0 (0.0-0.4) X10*3/uL Baso # (Auto) 0.0 (0.0-0.2) X10*3/uL Abs Immat Gran (auto) 0.02 (0.00-0.03) X10*3/uL Absolute Neuts (auto) 7.1 (2.0-8.3) x10*3/uL Absolute Nucleated RBC 0.000 (0.0-0.012) X10*3/uL Nucleated RBC % (auto) 0.0 (0.0-0.2) /100WBC PT (10.0-13.1) SEC INR (0.9-1.1) APTT (26.0-36.4) SEC Sodium 137 (135-145) mmol/L Potassium 4.5 (3.3-5.1) mmol/L Chloride 96 (96-108) mmol/L Carbon Dioxide 24 (22-29) mmol/L Anion Gap 22 H (12-20) BUN 33 H (9-16) mg/dL Creatinine 1.61 H (0.5-1.4) mg/dL Estim Creat Clear Calc 36.1 Estimated GFR 43 Random Glucose 164 H (60-115) mg/dL Lactic Acid 2.2 H* (0.5-2.0) mmol/L Calcium 9.4 D (8.4-10.2) mg/dL Magnesium (1.6-2.6) mg/dL Total Bilirubin 1.3 H (0.0-1.0) mg/dL AST 14 (5-37) U/L ALT 14 (0-40) U/L Alkaline Phosphatase 75 (39-117) U/L Troponin I High Sens (<3.5-35.0) ng/L Total Protein 7.5 (6.5-8.0) g/dL Albumin 4.4 (3.5-5.0) g/dL Lipase 46 (8-78) U/L Influenza Type A (PCR) (Negative) Influenza Type B (PCR) (Negative) RSV RNA Qual (PCR) (Negative) SARS-CoV-2 RNA (RT-PCR) (Negative) 08/25/22 08/25/22 08/25/22 Range/Units 21:06 21:06 21:06 WBC (4.8-10.8) X10*3/uL RBC (4.60-5.80) X10*6/uL Hgb (14.0-18.0) g/dl Hct (42.0-52.0) % MCV (80.0-98.0) fL MCH (27.0-33.0) pg MCHC (31.0-36.0) g/dl RDW (11.0-16.0) % Plt Count (160-400) X10*3/uL MPV (9.4-12.4) fL Immature Gran % (Auto) (0.0-0.4) % Neut % (Auto) (45-73) % Lymph % (Auto) (20-40) % [place] % (Auto) (2-11) % Eos % (Auto) (0-4) % Baso % (Auto) (0-2) % Lymph # (Auto) (1.2-4.9) X10*3/uL [place] # (Auto) (0.1-1.2) X10*3/uL Eos # (Auto) (0.0-0.4) X10*3/uL Baso # (Auto) (0.0-0.2) X10*3/uL Abs Immat Gran (auto) (0.00-0.03) X10*3/uL Absolute Neuts (auto) (2.0-8.3) x10*3/uL Absolute Nucleated RBC (0.0-0.012) X10*3/uL Nucleated RBC % (auto) (0.0-0.2) /100WBC PT 11.5 (10.0-13.1) SEC INR 1.0 (0.9-1.1) APTT 28.8 (26.0-36.4) SEC Sodium (135-145) mmol/L Potassium (3.3-5.1) mmol/L Chloride (96-108) mmol/L Carbon Dioxide (22-29) mmol/L Anion Gap (12-20) BUN (9-16) mg/dL Creatinine (0.5-1.4) mg/dL Estim Creat Clear Calc Estimated GFR Random Glucose (60-115) mg/dL Lactic Acid (0.5-2.0) mmol/L Calcium (8.4-10.2) mg/dL Magnesium 1.9 (1.6-2.6) mg/dL Total Bilirubin (0.0-1.0) mg/dL AST (5-37) U/L ALT (0-40) U/L Alkaline Phosphatase (39-117) U/L Troponin I High Sens 36.4 H (<3.5-35.0) ng/L Total Protein (6.5-8.0) g/dL Albumin (3.5-5.0) g/dL Lipase (8-78) U/L Influenza Type A (PCR) (Negative) Influenza Type B (PCR) (Negative) RSV RNA Qual (PCR) (Negative) SARS-CoV-2 RNA (RT-PCR) (Negative) 08/25/22 Range/Units 21:50 WBC (4.8-10.8) X10*3/uL RBC (4.60-5.80) X10*6/uL Hgb (14.0-18.0) g/dl Hct (42.0-52.0) % MCV (80.0-98.0) fL MCH (27.0-33.0) pg MCHC (31.0-36.0) g/dl RDW (11.0-16.0) % Plt Count (160-400) X10*3/uL MPV (9.4-12.4) fL Immature Gran % (Auto) (0.0-0.4) % Neut % (Auto) (45-73) % Lymph % (Auto) (20-40) % [place] % (Auto) (2-11) % Eos % (Auto) (0-4) % Baso % (Auto) (0-2) % Lymph # (Auto) (1.2-4.9) X10*3/uL [place] # (Auto) (0.1-1.2) X10*3/uL Eos # (Auto) (0.0-0.4) X10*3/uL Baso # (Auto) (0.0-0.2) X10*3/uL Abs Immat Gran (auto) (0.00-0.03) X10*3/uL Absolute Neuts (auto) (2.0-8.3) x10*3/uL Absolute Nucleated RBC (0.0-0.012) X10*3/uL Nucleated RBC % (auto) (0.0-0.2) /100WBC PT (10.0-13.1) SEC INR (0.9-1.1) APTT (26.0-36.4) SEC Sodium (135-145) mmol/L Potassium (3.3-5.1) mmol/L Chloride (96-108) mmol/L Carbon Dioxide (22-29) mmol/L Anion Gap (12-20) BUN (9-16) mg/dL Creatinine (0.5-1.4) mg/dL Estim Creat Clear Calc Estimated GFR Random Glucose (60-115) mg/dL Lactic Acid (0.5-2.0) mmol/L Calcium (8.4-10.2) mg/dL Magnesium (1.6-2.6) mg/dL Total Bilirubin (0.0-1.0) mg/dL AST (5-37) U/L ALT (0-40) U/L Alkaline Phosphatase (39-117) U/L Troponin I High Sens (<3.5-35.0) ng/L Total Protein (6.5-8.0) g/dL Albumin (3.5-5.0) g/dL Lipase (8-78) U/L Influenza Type A (PCR) NEGATIVE (Negative) Influenza Type B (PCR) NEGATIVE (Negative) RSV RNA Qual (PCR) NEGATIVE (Negative) SARS-CoV-2 RNA (RT-PCR) NEGATIVE (Negative) Independent Interpretation I performed an independent interpretation of an: EKG Interpretation: Patient's EKG showed a sinus tachycardia heart rate was 140 positive right bundle branch block. There is no acute ST segment elevation noted. Radiology Impression Discussion of test interpretation with radiology: I have reviewed the radiologist's reading. Independent Historian Clinical information obtained from an independent historian. History obtained from or confirmed by: Spouse External Record Review External record reviewed: Inpatient record, Office record and Outpatient record Critical Care Time Critical Care Time Critical Care Time: Yes Total Critical Care Time: 40 Attestation: I have personally provided 40 minutes of critical care time exclusive of time spent on separately billable procedures. Time includes review of lab data, radiology results, discussion with consultants, and monitoring for potential decompensation. Interventions were performed as documented above Discharge Plan Discharge Clinical Impression: Acute dehydration, Acute renal failure, Complete small bowel obstruction Patient Disposition: Admitted As Inpatient Prescriptions: No Action prednisone 20 mg tablet 20 mg PO DAILY 6 Days Qty: 6 0RF Rx Instructions: Prednisone taper, 60 mg by mouth per day for 2 days followed by 40 mg by mouth p.o. for 2 days followed by 20 mg by mouth for 2 days Total 6 day course, dispense QS cetirizine 10 mg capsule 10 mg PO DAILY 10 Days Qty: 10 0RF cephalexin [Keflex] 500 mg capsule 500 mg PO QID 7 Days Qty: 28 0RF diphenhydramine HCl [Benadryl] 25 mg capsule 50 mg PO BEDTIME PRN (Reason: itching) Qty: 20 0RF ondansetron 4 mg tablet,disintegrating 4 mg PO Q6-8H PRN (Reason: nausea and vomiting) Qty: 7 0RF
[2022-08-25 21:13] LABS: MANUAL DIFF FLAG NO
[2022-08-25 21:14] LABS: Basophils Percent Auto 0.4 % (0-2); Hematocrit 42.4 % (42.0-52.0); Hemoglobin 13.9 g/dl (14.0-18.0); Imm Gran Abs Auto 0.02 X10*3/uL (0.00-0.03); Imm Gran Pct Auto 0.2 % (0.0-0.4); Lymphocytes Absolute Auto 0.6 X10*3/uL (1.2-4.9); Lymphocytes Percent Auto 7.2 % (20-40); Mean Corpuscular HGB Conc 32.8 g/dl (31.0-36.0); Mean Corpuscular Hemoglobin 28.1 pg (27.0-33.0); Mean Corpuscular Volume 85.7 fL (80.0-98.0); Mean Platelet Volume 10.4 fL (9.4-12.4); Monocytes Absolute Auto 0.5 X10*3/uL (0.1-1.2); Monocytes Percent Auto 5.8 % (2-11); Neutrophils Absolute Auto 7.1 x10*3/uL (2.0-8.3); Neutrophils Percent Auto 86.4 % (45-73); Platelet Count 270 X10*3/uL (160-400); Red Blood Count 4.95 X10*6/uL (4.60-5.80); Red Cell Distribution Width 14.7 % (11.0-16.0); White Blood Count 8.2 X10*3/uL (4.8-10.8)
[2022-08-25 21:20] LABS: Prothrombin Time 11.5 SEC (10.0-13.1)
[2022-08-25 21:22] LABS: Partial Thromboplastin Time 28.8 SEC (26.0-36.4)
[2022-08-25] MEDS: 0.9 % Sodium Chloride 1,000 ML 999 ML IV ×2 (21:28)
[2022-08-25 21:31] LABS: Magnesium 1.9 mg/dL (1.6-2.6)
[2022-08-25 21:36] LABS: Alanine Aminotransferase 14 U/L (0-40); Albumin Level 4.4 g/dL (3.5-5.0); Alkaline Phosphatase 75 U/L (39-117); Anion Gap 22 (12-20); Aspartate Amino Transferase 14 U/L (5-37); Bilirubin Total 1.3 mg/dL (0.0-1.0); Blood Urea Nitrogen 33 mg/dL (9-16); Calcium 9.4 mg/dL (8.4-10.2); Carbon Dioxide 24 mmol/L (22-29); Chloride 96 mmol/L (96-108); Creatinine Clr Calc Pharmacy 36.1; Estimated Glomerular Filt Rate 43; Glucose Random 164 mg/dL (60-115); Lipase 46 U/L (8-78); Potassium 4.5 mmol/L (3.3-5.1); Sodium 137 mmol/L (135-145); Total Protein 7.5 g/dL (6.5-8.0)
[2022-08-25 21:38] LABS: Lactic Acid 2.2 mmol/L (0.5-2.0)
[2022-08-25 21:39] VITALS: RESP 16
[2022-08-25 21:39] LABS: Troponin-I High Sensitivity 36.4 ng/L (<3.5-35.0)
[2022-08-25] MEDS: HYDROmorphone HCl 0.5 MG/0.5 ML SYRINGE IVPUSH ×2 (21:39→23:11)
[2022-08-25] MEDS: ondansetron HCL 4 MG/2 ML VIAL IVPUSH (21:39)
[2022-08-25 22:31] LABS: Influenza A PCR NEGATIVE (Negative); Influenza B PCR NEGATIVE (Negative); Resp Syncy Virus RNA Qual PCR NEGATIVE (Negative); SARS COV2 PCR INHOUSE NEGATIVE (Negative)
[2022-08-25] MEDS: cefTRIAXone sodium 1 GM in 0.9 % Sodium Chloride 50 ML IV (22:31)
[2022-08-25] MEDS: metroNIDAZOLE/NS 500 MG/100 ML PIGGYBACK 100 MG IV (22:33)
[2022-08-25 22:56] VITALS: BP 109/76; PULSE 103; RESP 24; TEMP 36.9; O2SAT 97
[2022-08-25 23:11] VITALS: RESP 14
[2022-08-25 23:11] LABS: Reflex Lactate? Lactic Acid Added
[2022-08-25] MEDS: Metoclopramide HCl 10 MG/2 ML VIAL IVPUSH (23:11)
[2022-08-25 23:32] VITALS: BP 127/86; PULSE 108; RESP 16; TEMP 36.4; O2SAT 93
[2022-08-26] VITALS (19 sets, daily range): BP systolic 102–132; BP diastolic 63–83; PULSE 101–119; RESP 16–25; TEMP 36.1–37.2; O2SAT 90–97
[2022-08-26] MEDS: iohexoL 350 MG/ML 100 ML INFUS..BTL 85 ML IV (00:10)
[2022-08-26 02:05] LABS: ~Lactic Acid-LAB USE ONLY 1.3 mmol/L (0.5-2.0)
[2022-08-26] MEDS: 0.9 % Sodium Chloride 1,000 ML 999 ML IV ×2 (02:59)
[2022-08-26] MEDS: propofoL 200 MG/20 ML VIAL 50 MG IVPUSH ×2 (03:32→04:09)
--- NOTE | 2022-08-26 03:35 | PC.NURSE ---
This RN attempted to insert NF tube x2 attempts, unsuccessfully. Patient vomited 780 mL of brown vomitus during the procedure. Dr. Jackson notified. Patient signed consent for conscious sedation. MD explained to patient risks that he may exhibit during the procedure, patient verbalized understanding and signed the consent. Patient medicated with Propofol 50 mg x2 doses in presence of RT Trina, and this RN. VSS during the procedure. MD was unable to insert NG tube. Patient was lightly sedated during the procedure and recovered within 5 min with stable VS and baseline cognitive status-alert and oriented x5. Patient requested urinal after the procedure and was able to void 150 mL of yellow, clear urine into the urinal. Call salvador placed within patient's [employer] ortega is able to make his needs known.
[2022-08-26] MEDS: Heparin Sodium,Porcine 5,000 UNIT/ML VIAL 5000 UNIT SUBCUT (04:25)
[2022-08-26] MEDS: Dextrose 5 % and Lactated Ring 1,000 ML 125 ML IVCONT ×2 (04:26→15:37)
[2022-08-26] MEDS: HYDROmorphone HCl 0.5 MG/0.5 ML SYRINGE IVPUSH ×7 (04:37→21:08)
[2022-08-26 05:32] LABS: Anion Gap 18 (12-20); Blood Urea Nitrogen 35 mg/dL (9-16); Calcium 7.7 mg/dL (8.4-10.2); Carbon Dioxide 25 mmol/L (22-29); Chloride 99 mmol/L (96-108); Creatinine Clr Calc Pharmacy 39.3; Estimated Glomerular Filt Rate 47; Glucose Random 138 mg/dL (60-115); Potassium 4.5 mmol/L (3.3-5.1); Sodium 137 mmol/L (135-145)
[2022-08-26] MEDS: 0.9 % Sodium Chloride Flush 3 ML SYRINGE IVFLUSH ×2 (07:17→15:37)
--- NOTE | 2022-08-26 07:34 | P.HPGS_ITS ---
History of Present Illness History of Present Illness Date of Service: 08/26/22 Chief complaint: Small Bowel Obstruction Narrative: Simon Millan is a 67 year old male presenting with a Four day history of abdominal pain located throughout the abdomen. Pain is associated with nausea and vomiting, as well as constipation. Denies a previous history of similar symptoms. He does have a previous history of abdominal wall hernia repaired with mesh through a left paramedian incision. He presented to the emergency department was found to be tachycardic from dehydration. He has received fluid hydration while in the emergency department. A CT abdomen and pelvis revealed dilated loops of small bowel and stomach with a transition point in the left upper quadrant suggestive of a complete small bowel obstruction. There was decompressed small bowel and colon distal to this. He is admitted to the surgical service for further management of the small-bowel obstruction. Review of Systems Review of Systems: Yes all other systems are reviewed and are negative Constitutional: Constitutional: Denies chills, Denies fever(s), Denies headache(s), Reports poor appetite and Denies weakness ENT: Denies headache(s) Cardiovascular: Cardiovascular: Denies chest pain, Reports rapid heart rate, Denies irregular heart rhythm, Denies palpitations and Denies dyspnea Respiratory: Respiratory: Denies cough, Denies excessive phlegm production and Denies dyspnea Gastrointestinal: Gastrointestinal: Reports abdominal pain, Reports bloating, Denies change in bowel habits, Reports constipation, Denies heartburn, Denies diarrhea, Reports nausea and Reports vomiting Genitourinary: Genitourinary: Denies difficulty urinating and Denies urinary frequency Musculoskeletal: Musculoskeletal: Denies back pain, Denies muscle weakness and Denies numbness Integumentary/Breasts: Skin/Breast: Denies changing lesions and Denies unusual bruising Neurologic: Denies headache(s), Denies numbness, Denies paresthesias and Denies weakness Psychiatric: Psychiatric: Denies anxiety and Denies depression Endocrine: Endocrine: Denies palpitations Hematologic/Lymphatic: Hematologic/Lymphatic: Denies lymphadenopathy PMFSH Past Medical History Medical History Arthritis Hernia of abdominal wall Surgical History Surgical History History of back surgery Hx of neck surgery S/P ventral herniorrhaphy Social History Social History Alcohol intake: never Patient Tobacco Use Status: Current everyday Tobacco user Smoked in Last 30 Days: Yes Use of substances other than those prescribed or required for medical reasons: No Advance Directives: Yes Advance Directives Information Provided: No Advance Directives on File: No Nutrition Risks: On aspiration precautions Current occupation: Right Handed Meds Allergies Allergy/AdvReac Type Severity Reaction Status Date / Time No Known Allergies Allergy Verified 08/25/22 20:28 Active Medications: Current Medications Acetaminophen (Acetaminophen 325 Mg Tablet) 650 mg PO QID PRN PRN Reason: headache, temp > 101 Heparin Sodium (Porcine) (Heparin Sodium,Porcine 5,000 Unit/Ml Vial) 5,000 unit SUBCUT Q12H [facility] Last Admin: 08/26/22 04:25 Dose: 5,000 unit Hydromorphone HCl (Hydromorphone Hcl 0.5 Mg/0.5 Ml Syringe) 0.5 mg IVPUSH Q3H PRN; Protocol PRN Reason: Pain, Severe (Pain Scale 7-10) Last Admin: 08/26/22 04:37 Dose: 0.5 mg Dextrose/Lactated Ringer's (D5lr) 1,000 mls @ 125 mls/hr IVCONT .Q8H [facility] Last Admin: 08/26/22 04:26 Dose: 125 mls/hr Ondansetron HCl (Ondansetron Hcl 4 Mg/2 Ml Vial) 4 mg IVPUSH Q8H PRN PRN Reason: Nausea Pharmacy Consult (Consult Rx Perform Med Rec) 1 each MISCELLANE ONCE PRN PRN Reason: Consult order Sodium Chloride (0.9 % Sodium Chloride Flush 3 Ml Syringe) 3 ml IVFLUSH QSHIFT [facility] Last Admin: 08/26/22 07:17 Dose: 3 ml Zolpidem Tartrate (Zolpidem Tartrate 5 Mg Tablet) 5 mg PO BEDTIME PRN PRN Reason: Insomnia Physical Exam Vital Signs: Vital Signs: Last Vital Signs Temp 98 F 08/26/22 07:06 Pulse 111 H 08/26/22 07:06 Resp 23 H 08/26/22 07:06 BP 118/79 08/26/22 07:06 Pulse Ox 97 08/26/22 07:06 O2 Del Method 08/26/22 07:06 O2 Flow Rate 6 08/26/22 07:06 BMI result Body Mass Index 31.2 Const: General: cooperative, acute distress and ill appearing Nutritional Appearance: thin Orientation/consciousness: patient oriented x3 Limitations: no limitations HEENT: Head: Yes normocephalic and Yes atraumatic Ears: hearing grossly normal bilaterally Neck: Other: stiff neck, flexed forward Resp: Other: breathing comfortably on room air Effort & Inspection: normal respiratory effort, no audible wheezes, no cough and no respiratory distress Cardio: Jugular venous distension: no JVD GI: Other: softly distended, tender to palpation diffusely , tympany to percussion. Left paramedian incision from previous hernia repair. Inspection: Yes normal to inspection Abdomen image: 1. Incision left paramedian Skin: Other: Warm, dry, multiple chronic ecchymotic changes to upper and lower extremities Neuro: General: patient oriented x3 Extrem: General: Yes no clubbing, cyanosis or edema Results Results Labs: Short CBC 08/25/22 Range/Units 21:06 WBC 8.2 (4.8-10.8) X10*3/uL Hgb 13.9 L (14.0-18.0) g/dl Hct 42.4 (42.0-52.0) % Plt Count 270 D (160-400) X10*3/uL BMP 08/25/22 08/26/22 21:06 04:34 Sodium 137 137 Potassium 4.5 4.5 Chloride 96 99 Carbon Dioxide 24 25 BUN 33 H 35 H Creatinine 1.61 H 1.48 H Calcium 9.4 D 7.7 L D Liver Function 08/25/22 Range/Units 21:06 Total Bilirubin 1.3 H (0.0-1.0) mg/dL AST 14 (5-37) U/L ALT 14 (0-40) U/L Alkaline Phosphatase 75 (39-117) U/L Albumin 4.4 (3.5-5.0) g/dL Abdomen CT scan report/results: image reviewed CT scan - pelvis: image reviewed Assessment and Plan (1) Complete small bowel obstruction: Status: Acute (2) Acute renal failure: Status: Acute Plan 67-year-old male patient presenting with a 4 day history of abdominal pain, distension, nausea and vomiting. He has a distant history of a previous ventral hernia repair with mesh. The patient complains of pain throughout the abdomen and was found on CT to have a small-bowel obstruction probably complete with decompressed small bowel distal to the obstructing point at the left upper quadrant. Obstruction may be due to adhesions from his previous hernia surgery although malignancy is also a possibility in this 67-year-old. attempt at nasogastric tube decompression was unsuccessful after multiple attempts. The patient is now complaining of sore throat as a results. Placement of this tube may be difficult due to his previous neck surgery. He reports that 1 of his neck bars has broken he is awaiting neck surgery by [facility] later this month. We discussed treatment of small-bowel obstruction including non operative ma nagement with tube decompression, IV fluids and observation verses operative management with exploratory laparotomy and lysis of adhesions. As this has been going on for the past 4 days and nasogastric tube has not been able to be placed, he wishes to proceed with surgical management. I reviewed the procedure, risks, and alternatives in detail with the patient he expressed understanding and agrees with proceeding to surgery. He gives his consent for an exploratory laparotomy with lysis of adhesions, possible small-bowel resection. He will be added onto the operative schedule for this morning. Time Spent With Patient Time: Total time managing care of this patient today ____ minutes. Quality Stroke Does the patient have a stroke diagnosis?: No VTE Prior VTE?: No VTE Risk Level:: Surgical - moderate VTE Device Contraindication: N/A - Device Ordered VTE Drug Contraindication: N/A - Med Ordered Procedures Date of Service Date of Service: 08/26/22
--- NOTE | 2022-08-26 07:59 | PC.NURSE ---
Call by short stay that they will be picking up pt by 8:30
--- NOTE | 2022-08-26 09:10 | HO.ANESPROP2 ---
[facility] Active Problems Active Problems: All Active Problems (Updated 08/26/22 @ 01:42 by Asiya Carreon MD) Closed fracture scapula, acromion (Acute) Acute dehydration (Acute) Acute renal failure (Acute) Complete small bowel obstruction (Acute) Past Medical History Medical History Arthritis Hernia of abdominal wall Family History Family history of problems with anesthesia: No Surgical History Surgical History History of back surgery Hx of neck surgery S/P ventral herniorrhaphy History of Problems with Anesthesia: No Social History Social History Alcohol intake: never Patient Tobacco Use Status: Current everyday Tobacco user Current occupation: Right Handed Meds Allergies Allergy/AdvReac Type Severity Reaction Status Date / Time No Known Allergies Allergy Verified 08/25/22 20:28 Active Medications: Current Medications Acetaminophen (Acetaminophen 325 Mg Tablet) 650 mg PO QID PRN PRN Reason: headache, temp > 101 Heparin Sodium (Porcine) (Heparin Sodium,Porcine 5,000 Unit/Ml Vial) 5,000 unit SUBCUT Q12H [facility] Last Admin: 08/26/22 04:25 Dose: 5,000 unit Hydromorphone HCl (Hydromorphone Hcl 0.5 Mg/0.5 Ml Syringe) 0.5 mg IVPUSH Q3H PRN; Protocol PRN Reason: Pain, Severe (Pain Scale 7-10) Last Admin: 08/26/22 07:44 Dose: 0.5 mg Dextrose/Lactated Ringer's (D5lr) 1,000 mls @ 125 mls/hr IVCONT .Q8H [facility] Last Admin: 08/26/22 04:26 Dose: 125 mls/hr Multi-Ingred Medicated Throat [place] (Throat [place], Medicated 177 Ml Bottle) 1 spray MUCOUS MEM Q2H PRN PRN Reason: Sore Throat Ondansetron HCl (Ondansetron Hcl 4 Mg/2 Ml Vial) 4 mg IVPUSH Q8H PRN PRN Reason: Nausea Pharmacy Consult (Consult Rx Perform Med Rec) 1 each MISCELLANE ONCE PRN PRN Reason: Consult order Sodium Chloride (0.9 % Sodium Chloride Flush 3 Ml Syringe) 3 ml IVFLUSH QSHIFT [facility] Last Admin: 08/26/22 07:17 Dose: 3 ml Zolpidem Tartrate (Zolpidem Tartrate 5 Mg Tablet) 5 mg PO BEDTIME PRN PRN Reason: Insomnia Home Medications Medication Instructions Recorded Confirmed Last Taken Type albuterol sulfate 2.5 mg/3 mL 1 vial inhalation Q4H PRN wheezing 08/26/22 Unknown History (0.083 %) solution for nebulization amitriptyline 25 mg tablet 1 tab PO BEDTIME 08/26/22 Unknown History leflunomide 20 mg tablet 1 tab PO DAILY 08/26/22 Unknown History methotrexate sodium 2.5 mg tablet 10 tab PO SA 08/26/22 08/26/22 08/21/22 History omeprazole 20 mg capsule,delayed 1 cap PO DAILY 08/26/22 Unknown History release oxymetazoline 0.05 % nasal spray 2 spray intranasal Q12H PRN 08/26/22 08/26/22 Unknown History Congestion prednisone 5 mg tablet 1 tab PO DAILY 08/26/22 Unknown History trazodone 50 mg tablet 1 - 3 tab PO BEDTIME PRN insomnia 08/26/22 Unknown History Exam Exam Date and Time: August 26, 2022 0910 Height,Weight and Vital Signs: Height 5 ft Weight 72.575 kg Last Vital Signs Temp 98 F 08/26/22 07:06 Pulse 111 H 08/26/22 07:06 Resp 23 H 08/26/22 07:06 BP 118/79 08/26/22 07:06 Pulse Ox 97 08/26/22 07:06 O2 Del Method 08/26/22 07:06 O2 Flow Rate 6 08/26/22 07:06 Pertinent Lab Results Pertinent Lab Results: Laboratory Tests 08/25/22 08/25/22 08/25/22 21:05 21:06 21:06 WBC 8.2 RBC 4.95 D Hgb 13.9 L Hct 42.4 MCV 85.7 MCH 28.1 MCHC 32.8 RDW 14.7 Plt Count 270 D MPV 10.4 Immature Gran % (Auto) 0.2 Neut % (Auto) 86.4 H Lymph % (Auto) 7.2 L [place] % (Auto) 5.8 Eos % (Auto) 0.0 Baso % (Auto) 0.4 Lymph # (Auto) 0.6 L [place] # (Auto) 0.5 Eos # (Auto) 0.0 Baso # (Auto) 0.0 Abs Immat Gran (auto) 0.02 Absolute Neuts (auto) 7.1 Absolute Nucleated RBC 0.000 Nucleated RBC % (auto) 0.0 PT INR APTT Sodium 137 Potassium 4.5 Chloride 96 Carbon Dioxide 24 Anion Gap 22 H BUN 33 H Creatinine 1.61 H Estim Creat Clear Calc 36.1 Estimated GFR 43 Random Glucose 164 H Lactic Acid 2.2 H* Lactic Acid F/U @ 2Hr Calcium 9.4 D Magnesium Total Bilirubin 1.3 H AST 14 ALT 14 Alkaline Phosphatase 75 Troponin I High Sens Total Protein 7.5 Albumin 4.4 Lipase 46 Influenza Type A (PCR) Influenza Type B (PCR) RSV RNA Qual (PCR) SARS-CoV-2 RNA (RT-PCR) 08/25/22 08/25/22 08/25/22 21:06 21:06 21:06 WBC RBC Hgb Hct MCV MCH MCHC RDW Plt Count MPV Immature Gran % (Auto) Neut % (Auto) Lymph % (Auto) [place] % (Auto) Eos % (Auto) Baso % (Auto) Lymph # (Auto) [place] # (Auto) Eos # (Auto) Baso # (Auto) Abs Immat Gran (auto) Absolute Neuts (auto) Absolute Nucleated RBC Nucleated RBC % (auto) PT 11.5 INR 1.0 APTT 28.8 Sodium Potassium Chloride Carbon Dioxide Anion Gap BUN Creatinine Estim Creat Clear Calc Estimated GFR Random Glucose Lactic Acid Lactic Acid F/U @ 2Hr Calcium Magnesium 1.9 Total Bilirubin AST ALT Alkaline Phosphatase Troponin I High Sens 36.4 H Total Protein Albumin Lipase Influenza Type A (PCR) Influenza Type B (PCR) RSV RNA Qual (PCR) SARS-CoV-2 RNA (RT-PCR) 08/25/22 08/26/22 08/26/22 21:50 01:48 04:34 WBC RBC Hgb Hct MCV MCH MCHC RDW Plt Count MPV Immature Gran % (Auto) Neut % (Auto) Lymph % (Auto) [place] % (Auto) Eos % (Auto) Baso % (Auto) Lymph # (Auto) [place] # (Auto) Eos # (Auto) Baso # (Auto) Abs Immat Gran (auto) Absolute Neuts (auto) Absolute Nucleated RBC Nucleated RBC % (auto) PT INR APTT Sodium 137 Potassium 4.5 Chloride 99 Carbon Dioxide 25 Anion Gap 18 BUN 35 H Creatinine 1.48 H Estim Creat Clear Calc 39.3 Estimated GFR 47 Random Glucose 138 H Lactic Acid Lactic Acid F/U @ 2Hr 1.3 Calcium 7.7 L D Magnesium Total Bilirubin AST ALT Alkaline Phosphatase Troponin I High Sens Total Protein Albumin Lipase Influenza Type A (PCR) NEGATIVE Influenza Type B (PCR) NEGATIVE RSV RNA Qual (PCR) NEGATIVE SARS-CoV-2 RNA (RT-PCR) NEGATIVE Airway Mallampati Class: III TM Dist: <=3cm Neck ROM: Poor Heart: rrr Lungs: cta Assessment and Plan Final Anesthetic Review Family History of Problems with Anesthesia: No History of Problems with Anesthesia: No NPO: Yes ASA Class: IV and Emergency Final Preanesthetic Review: No Changes in Pt Med Stat, Meds/Allgs Chart Reviewed, Consent Obtained/Reviewed and Anes Risks/Benef Reviewed Patient Risk: High Procedure Risk: Intermediate Anesthetic Plan Anesthetic Plan: GA, Agree w/ Assess. and Plan and Other (Surgical service was not able to pass ngt, unstable cervical spine.) Disposition: Standard PACU and Inp. Admit - [facility]
--- NOTE | 2022-08-26 09:29 | PHA.MEDREC ---
Pharmacy Consult ? Medication Reconciliation Pharmacy has completed the medication reconciliation. Confirmed medication list with patient. He clarified his methotrexate dose is 10 tablets on Tuesday.
--- NOTE | 2022-08-26 09:29 | PC.NURSE ---
IV to left AC from ER is patent and intact.
--- NOTE | 2022-08-26 09:40 | PM.DS ---
DS: Providers Provider Date of Service: 08/26/22 Date of admission: 08/26/22 01:53 Date of discharge: 08/31/22 Primary care physician: ZAMZAM Bartholomew Attending physician on admission: Colton Ham Consults: 08/26/22 01:52 Consult to Hospitalist Routine Consulting Provider: Hospitalist Reason For Exam: SBO, FLO Attending physician on discharge: Colton Ham DS: Diagnosis Discharge Diagnosis (1) Complete small bowel obstruction: Status: Acute (2) Acute renal failure: Status: Acute DS: Summary Hospital Course Hospital Course: HPI AT ADMISSION: Simon Millan is a 67 year old male presenting with a four day history of abdominal pain located throughout the abdomen. Pain is associated with nausea and vomiting, as well as constipation. Denies a previous history of similar symptoms. He does have a previous history of abdominal wall hernia repaired with mesh through a left paramedian incision. He presented to the emergency department was found to be tachycardic from dehydration. He has received fluid hydration while in the emergency department. A CT abdomen and pelvis revealed dilated loops of small bowel and stomach with a transition point in the left upper quadrant suggestive of a complete small bowel obstruction. There was decompressed small bowel and colon distal to this. He reports that 1 of his neck bars has broken he is awaiting neck surgery by [facility] later this month. HOSPITAL COURSE: He is admitted to the surgical service for further management of the small-bowel obstruction, likely secondary to adhesions from his previous hernia surgery although malignancy is also a possibility in this 67-year-old. Nasogastric tube decompression was attempted in the ED and unsuccessful after multiple attempts. Treatment of small-bowel obstruction including non operative management with tube decompression, IV fluids and observation verses operative management with exploratory laparotomy and lysis of adhesions was discussed. Given he has been symptomatic for 4 days and nasogastric tube has not been able to be placed, therefore decompression not currently an option, surgical management was recommended and he agreed to proceed.? On 08/26/22 an exploratory Laparotomy, enterolysis was performed by Dr. Ham without complication. There was one adhesion in the LUQ with complete obstruction. He tolerated the procedure well. He had a slow recovery course. Hospitalist consult was obtained for management of his medical comorbidities. He had an FLO upon admission likely due to hypovolemia from dehydration, vomiting which improved with IV hydration. He did fairly well from a surgical standpoint. He felt improved and was passing flatus and his NGT was clamped on POD #1 and later removed. His banks was removed. His diet was slowly advanced to clear liquids and then a solid diet. He began move his bowels. His pain was well controlled on analgesics PRN. He was hypoxic with O2 ranging in low 90s which medicine thought was secondary to restrictive lung disease. He improved overall. PT was consulted who recommended home PT for strength, mobility and exercises. On the day of discharge, he was tolerating a solid diet with good GI function. His pain was well controlled on oral analgesics. His abdomen was benign with clean incision. He was discharged to home on 08/31/22 in stable condition with home PT and custodial. He is to follow up in the office in 1 week. Status at Discharge Functional status at discharge: uses cane/walker Overall status at discharge: patient is not back to baseline Time Spent with Patient Time attestation: Total time managing care of this patient today ____ minutes. Discharge coordination time: Greater than 30 minutes Quality: Safe Use of Opioids Does Pt have an Active Cancer Diagnosis on the Problem List?: No Quality: Stroke Does the patient have a stroke diagnosis?: No Physical Exam Vital Signs: Vital Signs: Vital Signs Temp 97.8 F 08/31/22 07:45 Pulse 93 H 08/31/22 09:44 Resp 18 08/31/22 09:44 BP 117/73 08/31/22 07:45 Pulse Ox 93 08/31/22 07:45 O2 Del Method O2 Flow Rate BMI result Body Mass Index 31.2 Const: General: comfortable and no acute distress Orientation/consciousness: patient oriented x3 Resp: Effort & Inspection: normal respiratory effort GI: Inspection: No distended and Yes incision (clean incision) Skin: Other: warm and dry General skin exam: no rashes or lesions noted Neuro: General: patient oriented x3 DS: Data Data Completed and Pending Labs on day of discharge: 08/25/22 08/25/22 08/25/22 21:05 21:06 21:06 WBC 8.2 RBC 4.95 D Hgb 13.9 L Hct 42.4 MCV 85.7 MCH 28.1 MCHC 32.8 RDW 14.7 Plt Count 270 D MPV 10.4 Immature Gran % (Auto) 0.2 Neut % (Auto) 86.4 H Lymph % (Auto) 7.2 L [place] % (Auto) 5.8 Eos % (Auto) 0.0 Baso % (Auto) 0.4 Lymph # (Auto) 0.6 L [place] # (Auto) 0.5 Eos # (Auto) 0.0 Baso # (Auto) 0.0 Abs Immat Gran (auto) 0.02 Absolute Neuts (auto) 7.1 Absolute Nucleated RBC 0.000 Nucleated RBC % (auto) 0.0 PT INR APTT Sodium 137 Potassium 4.5 Chloride 96 Carbon Dioxide 24 Anion Gap 22 H BUN 33 H Creatinine 1.61 H Estim Creat Clear Calc 36.1 Estimated GFR 43 Random Glucose 164 H Lactic Acid 2.2 H* Lactic Acid F/U @ 2Hr Calcium 9.4 D Magnesium Total Bilirubin 1.3 H AST 14 ALT 14 Alkaline Phosphatase 75 Troponin I High Sens Total Protein 7.5 Albumin 4.4 Lipase 46 Influenza Type A (PCR) Influenza Type B (PCR) RSV RNA Qual (PCR) SARS-CoV-2 RNA (RT-PCR) 08/25/22 08/25/22 08/25/22 21:06 21:06 21:06 WBC RBC Hgb Hct MCV MCH MCHC RDW Plt Count MPV Immature Gran % (Auto) Neut % (Auto) Lymph % (Auto) [place] % (Auto) Eos % (Auto) Baso % (Auto) Lymph # (Auto) [place] # (Auto) Eos # (Auto) Baso # (Auto) Abs Immat Gran (auto) Absolute Neuts (auto) Absolute Nucleated RBC Nucleated RBC % (auto) PT 11.5 INR 1.0 APTT 28.8 Sodium Potassium Chloride Carbon Dioxide Anion Gap BUN Creatinine Estim Creat Clear Calc Estimated GFR Random Glucose Lactic Acid Lactic Acid F/U @ 2Hr Calcium Magnesium 1.9 Total Bilirubin AST ALT Alkaline Phosphatase Troponin I High Sens 36.4 H Total Protein Albumin Lipase Influenza Type A (PCR) Influenza Type B (PCR) RSV RNA Qual (PCR) SARS-CoV-2 RNA (RT-PCR) 08/25/22 08/26/22 08/26/22 21:50 01:48 04:34 WBC RBC Hgb Hct MCV MCH MCHC RDW Plt Count MPV Immature Gran % (Auto) Neut % (Auto) Lymph % (Auto) [place] % (Auto) Eos % (Auto) Baso % (Auto) Lymph # (Auto) [place] # (Auto) Eos # (Auto) Baso # (Auto) Abs Immat Gran (auto) Absolute Neuts (auto) Absolute Nucleated RBC Nucleated RBC % (auto) PT INR APTT Sodium 137 Potassium 4.5 Chloride 99 Carbon Dioxide 25 Anion Gap 18 BUN 35 H Creatinine 1.48 H Estim Creat Clear Calc 39.3 Estimated GFR 47 Random Glucose 138 H Lactic Acid Lactic Acid F/U @ 2Hr 1.3 Calcium 7.7 L D Magnesium Total Bilirubin AST ALT Alkaline Phosphatase Troponin I High Sens Total Protein Albumin Lipase Influenza Type A (PCR) NEGATIVE Influenza Type B (PCR) NEGATIVE RSV RNA Qual (PCR) NEGATIVE SARS-CoV-2 RNA (RT-PCR) NEGATIVE Discharge Plan Discharge Anticipated Discharge Date/Time: 08/31/22 17:00 Patient Disposition: Home Health Service Discharge Diagnosis: SBO Referrals: [facility] [Outside] - 1 Week Colton Ham MD [Physician] - 1 Week Ousmane Carnes PA [Primary Care Provider] - 1 Week Discharge Medications: New oxycodone 5 mg tablet 5 mg PO Q6H PRN (Reason: pain (scale score 7-10)) Qty: 20 0RF Rx Instructions: Partial Fill upon patient request. Continued cetirizine 10 mg capsule 10 mg PO DAILY 10 Days Qty: 10 0RF diphenhydramine HCl [Benadryl] 25 mg capsule 50 mg PO BEDTIME PRN (Reason: itching) Qty: 20 0RF albuterol sulfate 2.5 mg /3 mL (0.083 %) solution for nebulization 1 vial inhalation Q4H PRN (Reason: wheezing) trazodone 50 mg tablet 1 - 3 tab PO BEDTIME PRN (Reason: insomnia) prednisone 5 mg tablet 5 mg PO DAILY leflunomide 20 mg tablet 20 mg PO DAILY amitriptyline 25 mg tablet 25 mg PO BEDTIME omeprazole 20 mg capsule,delayed release(DR/EC) 20 mg PO DAILY@0630 methotrexate sodium 2.5 mg tablet 10 tab PO SA oxymetazoline 0.05 % [place],Non-Aerosol 2 spray INTRANASAL Q12H PRN (Reason: Congestion) Discharge Orders: Discharge Order (Routine); Ordered 08/31/22 Ordered By: Colton Ham Diet: Advance to usual diet Activity on Discharge: No heavy lifting Stand Alone Forms: Patient Portal Discharge page Activity Restrictions/Additional Instructions: If the incision area is tender, you may apply an ice pack for short intervals (No more than 20 minutes on, followed by at least 20 minutes off). Do not apply heat. Do not use creams, lotions, or topical antibiotics unless instructed to do so by your surgeon. These can cause infection or allergic reaction. Ok to shower. You have radha closing your incision and these will be removed approximately 10-14 days after surgery. NO HEAVY LIFTING (>10lbs) or strenuous activity. Follow up in office. ([phone]) Call Your Doctor If: -Your temperature exceeds 101.5? F -You experience excessive pain or swelling -You have an unexpected reaction to medication -You have excessive bleeding -You experience continued vomiting/nausea -Your incision begins to separate -Your incision shows signs of infection such as increased redness, swelling, excessive pain, drainage (light blood or clear fluid is normal) or heat Care Plan Goals: Return to baseline health and gradual return to activity following recovery period. Health Concerns: SBO FLO Plan of Treatment: S/p exploratory laparotomy, lysis of adhesions Fu in office Assessment: Doing well post op Discharge Date/Time: 08/31/22 15:51
--- NOTE | 2022-08-26 09:48 | PC.NURSE ---
no vomiting noted in SSS
--- NOTE | 2022-08-26 10:32 | MHC.CM.PN ---
Attempted to meet with patient in regards to discharge planning. Patient transferred to [facility]. Will attempt to meet again. Continue to monitor for d/c needs.
--- NOTE | 2022-08-26 10:36 | PM.EVENT ---
Event Note Date of Service: 08/26/22 Event Note: [facility] called regarding patient's neck issues and concerns regarding intubation. Discussed with general surgery (Dr. Glaser) who consulted with his anesthesia who feel the spine is not unstable and he should be able to be intubated with fiberoptic. They will not accept the patient for this reason. Call placed to [facility] as well. I discussed the situation with and Mrs. Millan. He understands the concerns regarding his neck but is absolutely not interested in being transferred to [facility] or any other hospital. He prefers to have the surgery here and is willing to take the risks of the anesthesia. He understands there is a chance of further spinal cord injury. He wished to proceed with the surgery. Time Spent With Patient Time: Total time managing care of this patient today ____ minutes.
--- NOTE | 2022-08-26 10:39 | PC.NURSE ---
Patient has been at bedside during entire time in [facility]. Anesthesia and surgeon hasve met with both many times this a.m. as decisions are being made. Patient has been comfortable until this note when vomited x 1. see nurse note in vital signs.
--- NOTE | 2022-08-26 11:10 | PC.NURSE ---
Dr. Baptiste stated he did not need a T&S. Dr. Souza at bedside with phlebotomy stated okay to draw T&S. at bedside with anesthesia and surgeon all questions answered prior to patient leaving SSS to go into OR.
--- NOTE | 2022-08-26 11:17 | HO.PM.IMCN ---
History of Present Illness Data of Consult Service Date: 08/26/22 Primary Care Provider: ZAMZAM Bartholomew HPI Reason for consult: SBO, FLO, medical management Pt is a 67-year-old male with a PMH significant for?hx of ventral hernia repair with mesh, 5 back surgeries, 2 neck surgeries with another scheduled for 315 2022, congenital bicuspid aortic valve, vasculitis, had arthritis who presented to the ED with abdominal pain, distention, nausea, and vomiting x4 days. Was found on CT to have a likely complete SBO with transition point in upper left quadrant possibly secondary to adhesions. Labs significant for elevated creatinine at 1.61. NGT decompression unsuccessful after many attempts. Patient has had previous neck surgery, and reports currently has one of his neck bars broken, awaiting surgery by [facility] later in the month. Pt agreed to have exploratory laparotomy with lysis of adhesions with possible small bowel resection. Patient seen and evaluated at bedside s/p laparotomy with lysis of adhesions without small-bowel resection. Patient resting comfortably, complaining only of appropriate pain at incision sites. Patient has not yet passed gas or moved his bowels. NGT still in place. Patient denies chest pain/pressure, palpitations. Shortness of breath. Denies fever, chills, nausea, vomiting. No new numbness or tingling extremities. Denies passing flatus or moving his bowels. Review of Systems Review of Systems: Abdominal pain at incision sites Denies passing flatus or having bowel movement No chest pain/pressure, palpitations No fever, chills, nausea, vomiting Denies new numbness or tingling in extremities Yes all other systems are reviewed and are negative [facility] Medical History Arthritis Asthma Hernia of abdominal wall Surgical History History of back surgery Hx of neck surgery S/P ventral herniorrhaphy Social History Household Members: Spouse Housing: Condominium Do you presently have visiting nurse or other home services: No Alcohol intake: never Patient Tobacco Use Status: Current everyday Tobacco user Tobacco use type: Cigarette Cigarettes Per Day: 5 Years Smoked: 50 Second Hand Smoke Exposure: Yes Advance Directives Date on File: 08/26/22 Current occupation: Right Handed Meds Allergies Allergy/AdvReac Type Severity Reaction Status Date / Time No Known Allergies Allergy Verified 08/25/22 20:28 Active Medications: Current Medications Acetaminophen (Acetaminophen 325 Mg Tablet) 650 mg PO QID PRN PRN Reason: headache, temp > 101 Heparin Sodium (Porcine) (Heparin Sodium,Porcine 5,000 Unit/Ml Vial) 5,000 unit SUBCUT Q12H [facility] Last Admin: 08/26/22 04:25 Dose: 5,000 unit Hydromorphone HCl (Hydromorphone Hcl 0.5 Mg/0.5 Ml Syringe) 0.5 mg IVPUSH Q3H PRN; Protocol PRN Reason: Pain, Severe (Pain Scale 7-10) Last Admin: 08/26/22 07:44 Dose: 0.5 mg Dextrose/Lactated Ringer's (D5lr) 1,000 mls @ 125 mls/hr IVCONT .Q8H [facility] Last Admin: 08/26/22 04:26 Dose: 125 mls/hr Multi-Ingred Medicated Throat [place] (Throat [place], Medicated 177 Ml Bottle) 1 spray MUCOUS MEM Q2H PRN PRN Reason: Sore Throat Ondansetron HCl (Ondansetron Hcl 4 Mg/2 Ml Vial) 4 mg IVPUSH Q8H PRN PRN Reason: Nausea Pharmacy Consult (Consult Rx Perform Med Rec) 1 each MISCELLANE ONCE PRN PRN Reason: Consult order Sodium Chloride (0.9 % Sodium Chloride Flush 3 Ml Syringe) [facility] Last Admin: 08/26/22 07:17 Dose: 3 ml Zolpidem Tartrate (Zolpidem Tartrate 5 Mg Tablet) 5 mg PO BEDTIME PRN PRN Reason: Insomnia Home Medications Medication Instructions Recorded Confirmed Last Taken Type albuterol sulfate 2.5 mg/3 mL 1 vial inhalation Q4H PRN wheezing 08/26/22 08/26/22 Unknown History (0.083 %) solution for nebulization amitriptyline 25 mg tablet 25 mg PO BEDTIME 08/26/22 08/26/22 08/24/22 History leflunomide 20 mg tablet 20 mg PO DAILY 08/26/22 08/26/22 08/25/22 History methotrexate sodium 2.5 mg tablet 10 tab PO SA 08/26/22 08/26/22 08/21/22 History omeprazole 20 mg capsule,delayed 20 mg PO DAILY@0630 08/26/22 08/26/22 08/25/22 History release oxymetazoline 0.05 % nasal spray 2 spray intranasal Q12H PRN 08/26/22 08/26/22 Unknown History Congestion prednisone 5 mg tablet 5 mg PO DAILY 08/26/22 08/26/22 08/25/22 History trazodone 50 mg tablet 1 - 3 tab PO BEDTIME PRN insomnia 08/26/22 08/26/22 08/24/22 History Physical Exam Vital Signs and Narrative: Vital Signs: Last Vital Signs Temp 98.0 F 08/26/22 10:38 Pulse 114 H 08/26/22 10:38 Resp 20 08/26/22 10:38 BP 112/76 08/26/22 10:38 Pulse Ox 95 08/26/22 09:30 O2 Del Method 08/26/22 09:30 O2 Flow Rate 6 08/26/22 09:30 BMI result Body Mass Index 31.2 General: AOx3, no acute distress Resp: CTA bilaterally CVS: S1, S2, RRR GI: Pain at surgical sites. -BS Skin: No rash Neuro: Cranial nerves II-XII grossly intact bilaterally. Motor grossly intact bilaterally Extremities: No edema Psych: Appropriate affect Results Labs 08/25/22 21:06 08/26/22 04:34 Labs: Laboratory Results - last 24 hr 08/25/22 08/25/22 08/25/22 21:05 21:06 21:06 MCV 85.7 MCH 28.1 MCHC 32.8 RDW 14.7 Plt Count 270 D MPV 10.4 Immature Gran % (Auto) 0.2 Neut % (Auto) 86.4 H Lymph % (Auto) 7.2 L [place] % (Auto) 5.8 Eos % (Auto) 0.0 Baso % (Auto) 0.4 Lymph # (Auto) 0.6 L [place] # (Auto) 0.5 Eos # (Auto) 0.0 Baso # (Auto) 0.0 Abs Immat Gran (auto) 0.02 Absolute Neuts (auto) 7.1 Absolute Nucleated RBC 0.000 Nucleated RBC % (auto) 0.0 PT INR APTT Anion Gap 22 H Estim Creat Clear Calc 36.1 Estimated GFR 43 Random Glucose 164 H Lactic Acid 2.2 H* Lactic Acid F/U @ 2Hr Calcium 9.4 D Magnesium Total Bilirubin 1.3 H AST 14 ALT 14 Alkaline Phosphatase 75 Troponin I High Sens Total Protein 7.5 Albumin 4.4 Lipase 46 Influenza Type A (PCR) Influenza Type B (PCR) RSV RNA Qual (PCR) SARS-CoV-2 RNA (RT-PCR) 08/25/22 08/25/22 08/25/22 21:06 21:06 21:06 MCV MCH MCHC RDW Plt Count MPV Immature Gran % (Auto) Neut % (Auto) Lymph % (Auto) [place] % (Auto) Eos % (Auto) Baso % (Auto) Lymph # (Auto) [place] # (Auto) Eos # (Auto) Baso # (Auto) Abs Immat Gran (auto) Absolute Neuts (auto) Absolute Nucleated RBC Nucleated RBC % (auto) PT 11.5 INR 1.0 APTT 28.8 Anion Gap Estim Creat Clear Calc Estimated GFR Random Glucose Lactic Acid Lactic Acid F/U @ 2Hr Calcium Magnesium 1.9 Total Bilirubin AST ALT Alkaline Phosphatase Troponin I High Sens 36.4 H Total Protein Albumin Lipase Influenza Type A (PCR) Influenza Type B (PCR) RSV RNA Qual (PCR) SARS-CoV-2 RNA (RT-PCR) 08/25/22 08/26/22 08/26/22 21:50 01:48 04:34 MCV MCH MCHC RDW Plt Count MPV Immature Gran % (Auto) Neut % (Auto) Lymph % (Auto) [place] % (Auto) Eos % (Auto) Baso % (Auto) Lymph # (Auto) [place] # (Auto) Eos # (Auto) Baso # (Auto) Abs Immat Gran (auto) Absolute Neuts (auto) Absolute Nucleated RBC Nucleated RBC % (auto) PT INR APTT Anion Gap 18 Estim Creat Clear Calc 39.3 Estimated GFR 47 Random Glucose 138 H Lactic Acid Lactic Acid F/U @ 2Hr 1.3 Calcium 7.7 L D Magnesium Total Bilirubin AST ALT Alkaline Phosphatase Troponin I High Sens Total Protein Albumin Lipase Influenza Type A (PCR) NEGATIVE Influenza Type B (PCR) NEGATIVE RSV RNA Qual (PCR) NEGATIVE SARS-CoV-2 RNA (RT-PCR) NEGATIVE Imaging Radiologist's Impressions: Impressions Chest X-Ray 08/25/22 21:30 IMPRESSION: Limited study. No overt CHF or pneumonia. Abdomen/Pelvis CT 08/26/22 00:10 IMPRESSION: 1. Small bowel obstruction with transition point suspected to lie in the left abdomen. 2. Numerous bilateral renal calculi without hydronephrosis. 3. Numerous hypoattenuating bilateral renal lesions, favoring cysts. However, there is also a 1.2 cm exophytic lesion off the lateral right kidney which is not cystic by CT criteria and does not present previously; solid mass cannot be excluded. Further workup with renal protocol CT or MRI is recommended. 4. Multifocal regions of pulmonary opacity in the bilateral lower lobes and left upper lobe, which may at least partially be due to atelectasis though some superimposed consolidation such as from pneumonia or aspiration may also be present. Assessment and Plan (1) Complete small bowel obstruction: Status: Acute (2) FLO (acute kidney injury): Status: Acute Plan Pt is a 67-year-old male with a PMH significant for?hx of ventral hernia repair with mesh, 5 back surgeries, 2 neck surgeries with another scheduled for 315 2022, congenital bicuspid aortic valve, vasculitis, had arthritis who presented to the ED with abdominal pain, distention, nausea, and vomiting x4 days. Patient admitted to the hospital under General surgery, hospitals consult for FLO and medical management. SBO Plan as per General Surgical Team FLO Creatinine 1.61 with repeat 1.48 Likely secondary to dehydration from decreased p.o. intake and vomiting Patient received IVF in the ED, concurrently on maintenance fluids Repeat BMP in the morning, follow creatinine Vasculitis Continue prednisone, leflunomide Arthritis Continue methotrexate Insomnia Continue trazodone The for allowing us to participate in the care this patient. We will continue to follow along with you. Please let us know if there are any acute concerns or questions. Time Spent With Patient Time: Total time managing care of this patient today ____ minutes.
--- NOTE | 2022-08-26 12:54 | P.OP_ITS ---
Operative Note Operative Note Date of Service: 08/26/22 Narrative: Preoperative diagnosis: Small Bowel Obstruction Postoperative diagnosis:same Procedure:Exploratory Laparotomy, enterolysis Surgeon: Colton Ham MD Judicial Assistant: Adali Schwarz PA-C Anesthesia:General ET Indications for procedure:67 year old male with 4 day history of abdominal pain, distension, nausea, vomiting, found to have an SBO on CT Operative findings:Adhesion in the LUQ with complete obstruction. Specimen:none Estimated blood loss:20 mls Complications:none Procedure details: Patient was brought to the OR and placed in a sitting position. Anesthesia placed a nasogastric tube with production of at least 2 L of gastric contents. An awake fiberoptic intubation was performed and the patient tolerated this well while maintaining stabilization of the cervical spine. A tap block was then performed bilaterally by Anesthesia. The abdomen was then prepped with ChloraPrep and draped in a sterile fashion. A surgical time-out was called the consent confirmed. Patient received preoperative antibiotics and Venodyne boots were in place. A midline incision was then created above the umbilicus and carried out through subcutaneous tissue through linea alba into the peritoneum. Small bowels were then brought up through the incision. Dilated small-bowel which appeared viable was identified. Small bowel was run proximally to the ligament of Treitz and then distally. An area of attachment was identified in the left upper quadrant involving the mid ileum were a tight dense adhesion was identified which had completely obstructed the bowel loop. This adhesion was able to be lysed with Metzenbaum scissors and the remainder of the small-bowel found to be within normal limits. Normal decompressed small bowel was noted distal to this obstruction. Small bowel was then run from ligament Treitz to the terminal ileum. One area of mid small bowel was noted to be adherent to the left lower quadrant near the descending colon. No mass or evidence of obstruction could be identified in this area. The bowel was normal caliber in this location. Small bowel was then returned to the abdominal cavity. Abdominal cavity was then irrigated with saline solution and suctioned dry. Fascia was then closed in the midline using a running 0 looped PDS suture. Skin was closed using skin radha. Sterile dressings were then applied. The patient tolerated the procedure well and remained hemodynamically stable. Sponge, instrument, and needle counts reported as correct. The patient was transferred to PACU in stable condition.
[2022-08-26] MEDS: Acetaminophen 1,000 MG/100 ML PIGGYBACK 400 MG IV ×2 (15:40→20:59)
--- NOTE | 2022-08-26 16:43 | PC.NURSE ---
Norman present ,no order on file ,Dr. Ham notified
[2022-08-27] VITALS (7 sets, daily range): BP systolic 114–128; BP diastolic 69–76; PULSE 81–99; RESP 15–18; TEMP 36.2–37.6; O2SAT 88–95
[2022-08-27] MEDS: 0.9 % Sodium Chloride Flush 3 ML SYRINGE IVFLUSH (00:33)
[2022-08-27] MEDS: Dextrose 5 % and Lactated Ring 1,000 ML 125 ML IVCONT ×3 (00:34→17:20)
[2022-08-27] MEDS: HYDROmorphone HCl 0.5 MG/0.5 ML SYRINGE IVPUSH ×7 (00:44→23:21)
[2022-08-27] MEDS: Acetaminophen 1,000 MG/100 ML PIGGYBACK 400 MG IV ×2 (02:50→09:09)
[2022-08-27] MEDS: Heparin Sodium,Porcine 5,000 UNIT/ML VIAL 5000 UNIT SUBCUT ×2 (02:53→14:23)
[2022-08-27 07:05] LABS: MANUAL DIFF FLAG NO
[2022-08-27 07:10] LABS: Basophils Percent Auto 0.2 % (0-2); Eosinophils Percent Auto 0.6 % (0-4); Hematocrit 31.1 % (42.0-52.0); Hemoglobin 9.9 g/dl (14.0-18.0); Imm Gran Abs Auto 0.01 X10*3/uL (0.00-0.03); Imm Gran Pct Auto 0.2 % (0.0-0.4); Lymphocytes Absolute Auto 0.6 X10*3/uL (1.2-4.9); Lymphocytes Percent Auto 12.3 % (20-40); Mean Corpuscular HGB Conc 31.8 g/dl (31.0-36.0); Mean Corpuscular Hemoglobin 27.7 pg (27.0-33.0); Mean Corpuscular Volume 87.1 fL (80.0-98.0); Mean Platelet Volume 11.5 fL (9.4-12.4); Monocytes Absolute Auto 0.4 X10*3/uL (0.1-1.2); Monocytes Percent Auto 8.5 % (2-11); Neutrophils Percent Auto 78.2 % (45-73); Platelet Count 185 X10*3/uL (160-400); Red Blood Count 3.57 X10*6/uL (4.60-5.80); White Blood Count 5.1 X10*3/uL (4.8-10.8)
--- NOTE | 2022-08-27 07:39 | HO.PM.IMPN ---
Subjective Subjective Date of Service: 08/27/22 Interval History: f/u on med consult for FLO, s/p SBO repair interval history: FLO resolved, has some pain, no bm, Physical Exam Vital Signs: Vital Signs: Last Vital Signs Temp 97.6 F 08/27/22 00:00 Pulse 98 08/27/22 00:00 Resp 18 08/27/22 00:00 BP 128/76 08/27/22 00:00 Pulse Ox 94 08/27/22 00:00 O2 Del Method 08/27/22 00:00 O2 Flow Rate 3 08/27/22 00:00 BMI result Body Mass Index 31.2 Const: Other: General: AO X 3, no acute distress Resp: CTA bilateral CVS: S1,S2,RRR GI: no BS, no tender Skin: No rash Neuro: motor grossly intact Psych: appropriate affect Objective Data Active Medications Heparin Sodium (Porcine) (Heparin Sodium,Porcine 5,000 Unit/Ml Vial) 5,000 unit SUBCUT Q12H [facility] Last Admin: 08/27/22 02:53 Dose: 5,000 unit Documented By: PENNY Hydromorphone HCl (Hydromorphone Hcl 0.5 Mg/0.5 Ml Syringe) 0.5 mg IVPUSH Q3H PRN; Protocol PRN Reason: Pain, Severe (Pain Scale 7-10) Last Admin: 08/27/22 06:36 Dose: 0.5 mg Documented By: PENNY Hydromorphone HCl (Hydromorphone Hcl 0.5 Mg/0.5 Ml Syringe) 0.5 mg IVPUSH Q5M PRN; Protocol PRN Reason: Pain, Moderate (Pain Scale 4-6 Last Admin: 08/26/22 14:20 Dose: 0.5 mg Documented By: FRANCESCA Dextrose/Lactated Ringer's (D5lr) 1,000 mls @ 80 mls/hr IVCONT .[id number] [facility] Last Admin: 08/27/22 00:34 Dose: 125 mls/hr Documented By: PENNY Acetaminophen (Ofirmev) 1,000 mg in 100 mls @ 400 mls/hr IV Q6H [facility] Stop: 08/27/22 09:14 Last Infusion: 08/27/22 03:26 Dose: 0 mls/hr Documented By: PENNY Multi-Ingred Medicated Throat [place] (Throat [place], Medicated 177 Ml Bottle) 1 spray MUCOUS MEM Q2H PRN PRN Reason: Sore Throat Ondansetron HCl (Ondansetron Hcl 4 Mg/2 Ml Vial) 4 mg IVPUSH Q8H PRN PRN Reason: Nausea Pharmacy Consult (Consult Rx Perform Med Rec) 1 each MISCELLANE ONCE PRN PRN Reason: Consult order Sodium Chloride (0.9 % Sodium Chloride Flush 3 Ml Syringe) 3 ml IVFLUSH QSHIFT [facility] Last Admin: 08/27/22 00:33 Dose: 3 ml Documented By: PENNY Zolpidem Tartrate (Zolpidem Tartrate 5 Mg Tablet) 5 mg PO BEDTIME PRN PRN Reason: Insomnia Labs 08/27/22 05:44 08/26/22 04:34 Labs: Laboratory Results - last 24 hr 08/26/22 08/27/22 11:09 05:44 MCV 87.1 MCH 27.7 MCHC 31.8 RDW 15.0 Plt Count 185 D MPV 11.5 Immature Gran % (Auto) 0.2 Neut % (Auto) 78.2 H Lymph % (Auto) 12.3 L [place] % (Auto) 8.5 Eos % (Auto) 0.6 Baso % (Auto) 0.2 Lymph # (Auto) 0.6 L [place] # (Auto) 0.4 Eos # (Auto) 0.0 Baso # (Auto) 0.0 Abs Immat Gran (auto) 0.01 Absolute Neuts (auto) 4.0 Absolute Nucleated RBC 0.000 Nucleated RBC % (auto) 0.0 Blood Type O Positive Antibody Screen NEGATIVE Microbiology Microbiology Results: Microbiology 08/25/22 21:04 Blood Culture - Preliminary Blood - Venous No growth after 24 hours. 08/25/22 21:04 Blood Culture - Preliminary Blood - Venous No growth after 24 hours. Assessment and Plan (1) FLO (acute kidney injury): Status: Acute Plan ? 67-year-old male with a PMH significant for?hx of ventral hernia repair with mesh, 5 back surgeries, 2 neck surgeries with another scheduled for 2022, congenital bicuspid aortic valve, vasculitis, had arthritis who presented to the ED with abdominal pain, distention, nausea, and vomiting x4 days.? Patient admitted to the hospital under General surgery, hospitals consult for FLO and medical management. SBO--s/p Exploratory Laparotomy, enterolysis 3/, further management by surgery FLO--pre renal, resolved Vasculitis Continue prednisone, leflunomide Arthritis Continue methotrexate Insomnia Continue trazodone hypoxia--88 ra, likely from atelectasis, O2, incentive spirometry Time Spent With Patient Time: Total time managing care of this patient today ____ minutes. Quality Stroke Does the patient have a stroke diagnosis?: No VTE Prior VTE?: No VTE Risk Level:: Surgical - moderate VTE Device Contraindication: N/A - Device Ordered VTE Drug Contraindication: N/A - Med Ordered
--- NOTE | 2022-08-27 07:40 | P.PNGS_ITS ---
Subjective Subjective Date of Service: 08/27/22 Interval history: Patient feels much improved this morning, reporting only a small amount of incisional pain. He reports passing flatus this morning. Would like to try liquids but understands nasogastric tube will need to be removed 1st. Discussed clamping trial this morning. Physical Exam Vital Signs: Vital Signs: Last Vital Signs Temp 97.6 F 08/27/22 00:00 Pulse 98 08/27/22 00:00 Resp 18 08/27/22 00:00 BP 128/76 08/27/22 00:00 Pulse Ox 94 08/27/22 00:00 O2 Del Method 08/27/22 00:00 O2 Flow Rate 3 08/27/22 00:00 BMI result Body Mass Index 31.2 Const: General: comfortable and no acute distress Nutritional Appearance: thin Orientation/consciousness: patient oriented x3 Limitations: ambulation with walker HEENT: Head: Yes normocephalic and Yes atraumatic Ears: hearing grossly normal bilaterally Resp: Effort & Inspection: normal respiratory effort Auscultation: clear to auscultation bilaterally GI: Inspection: Yes normal to inspection Palpation (GI): Soft to palpation, nontender, no guarding and not rigid Percussion: Yes normal to percussion Neuro: General: patient oriented x3 Extrem: General: Yes normal to inspection Objective Data Active Medications Heparin Sodium (Porcine) (Heparin Sodium,Porcine 5,000 Unit/Ml Vial) 5,000 unit SUBCUT Q12H [facility] Last Admin: 08/27/22 02:53 Dose: 5,000 unit Documented By: PENNY Hydromorphone HCl (Hydromorphone Hcl 0.5 Mg/0.5 Ml Syringe) 0.5 mg IVPUSH Q3H PRN; Protocol PRN Reason: Pain, Severe (Pain Scale 7-10) Last Admin: 08/27/22 06:36 Dose: 0.5 mg Documented By: PENNY Hydromorphone HCl (Hydromorphone Hcl 0.5 Mg/0.5 Ml Syringe) 0.5 mg IVPUSH Q5M PRN; Protocol PRN Reason: Pain, Moderate (Pain Scale 4-6 Last Admin: 08/26/22 14:20 Dose: 0.5 mg Documented By: FRANCESCA Dextrose/Lactated Ringer's (D5lr) 1,000 mls @ 80 mls/hr IVCONT .[id number] [facility] Last Admin: 08/27/22 00:34 Dose: 125 mls/hr Documented By: PENNY Acetaminophen (Ofirmev) 1,000 mg in 100 mls @ 400 mls/hr IV Q6H [facility] Stop: 08/27/22 09:14 Last Infusion: 08/27/22 03:26 Dose: 0 mls/hr Documented By: PENNY Multi-Ingred Medicated Throat [place] (Throat [place], Medicated 177 Ml Bottle) 1 spray MUCOUS MEM Q2H PRN PRN Reason: Sore Throat Ondansetron HCl (Ondansetron Hcl 4 Mg/2 Ml Vial) 4 mg IVPUSH Q8H PRN PRN Reason: Nausea Pharmacy Consult (Consult Rx Perform Med Rec) 1 each MISCELLANE ONCE PRN PRN Reason: Consult order Sodium Chloride (0.9 % Sodium Chloride Flush 3 Ml Syringe) 3 ml IVFLUSH QSHIFT [facility] Last Admin: 08/27/22 00:33 Dose: 3 ml Documented By: PENNY Zolpidem Tartrate (Zolpidem Tartrate 5 Mg Tablet) 5 mg PO BEDTIME PRN PRN Reason: Insomnia Labs 08/27/22 05:44 08/26/22 04:34 Labs: Laboratory Results - last 24 hr 08/26/22 08/27/22 11:09 05:44 MCV 87.1 MCH 27.7 MCHC 31.8 RDW 15.0 Plt Count 185 D MPV 11.5 Immature Gran % (Auto) 0.2 Neut % (Auto) 78.2 H Lymph % (Auto) 12.3 L [place] % (Auto) 8.5 Eos % (Auto) 0.6 Baso % (Auto) 0.2 Lymph # (Auto) 0.6 L [place] # (Auto) 0.4 Eos # (Auto) 0.0 Baso # (Auto) 0.0 Abs Immat Gran (auto) 0.01 Absolute Neuts (auto) 4.0 Absolute Nucleated RBC 0.000 Nucleated RBC % (auto) 0.0 Blood Type O Positive Antibody Screen NEGATIVE Microbiology Microbiology Results: Microbiology 08/25/22 21:04 Blood Culture - Preliminary Blood - Venous No growth after 24 hours. 08/25/22 21:04 Blood Culture - Preliminary Blood - Venous No growth after 24 hours. Procedures Date of Service Date of Service: 08/27/22 Progress Note: A&P Assessment and plan (1) Complete small bowel obstruction: Status: Acute Plan Pod 1 following exploratory laparotomy, lysis of adhesions for complete small- bowel obstruction. He tolerated the procedure well and is fairly comfortable this morning. Plan for removal of [place] catheter this morning. Will trial clamping the NG tube today. Out of bed with ambulation with walker. Time Spent With Patient Time: Total time managing care of this patient today ____ minutes. No Severe Sepsis: No Severe Sepsis Quality Stroke Does the patient have a stroke diagnosis?: No VTE Prior VTE?: No VTE Risk Level:: Surgical - moderate VTE Device Contraindication: N/A - Device Ordered VTE Drug Contraindication: N/A - Med Ordered
[2022-08-27 08:43] LABS: Anion Gap 15 (12-20); Blood Urea Nitrogen 27 mg/dL (9-16); Calcium 7.4 mg/dL (8.4-10.2); Carbon Dioxide 27 mmol/L (22-29); Chloride 103 mmol/L (96-108); Creatinine Clr Calc Pharmacy 63.2; Estimated Glomerular Filt Rate > 60; Glucose Random 130 mg/dL (60-115); Sodium 141 mmol/L (135-145)
--- NOTE | 2022-08-27 13:33 | MHC.CLN ---
NUTRITION CONSULT FOR WEIGHT LOSS. PATIENT IS CURRENTLY NPO. SBO WITH LYSIS OF ADHESIONS /. RD WILL ADDRESS WEIGHT CONCERN WHEN DIET RESUMES.
--- NOTE | 2022-08-27 14:17 | MHC.CLN ---
NUTRITION CONSULT FOR WEIGHT LOSS. PATIENT IS CURRENTLY NPO. SBO WITH LYSIS OF ADHESIONS 08/26. PATIENT REPORTS THAT HE LOST 30# X 1 WEEK DUE TO VOMITING AND DIARRHEA IN APPROX FIRST WEEK OF JUNE. REPORTS THAT RECENTLY LOST 4# IN 5 DAYS. WEIGHT LOSS APPEARS EXTREME AND QUESTION IF ACTUAL WEIGHT LOSS IN SHORT TIME PERIOD. WHEN DIET RESUMES, PATIENT WOULD LIKE ENSURE SUPPLEMENT. RECOMMEND ENSURE CLEAR TID IF CLEAR LIQUIDS. IF FULL LIQUIDS OR ADVANCED CONSISTENCY, RECOMMEND ENSURE TID. FOLLOW FOR DIET ADVANCEMENT AND INTAKE.
--- NOTE | 2022-08-27 14:50 | HO.POSTANES ---
Post Anesthesia Evaluation Post Anesthesia Evaluation Vital Signs: Vital Signs Temp Pulse Resp BP Pulse Ox O2 Del Method O2 Flow Rate 08/27/22 13:30 98.4 F 94 18 120/75 95 Nasal Cannula 4 08/27/22 08:58 99 114/69 88 L 08/27/22 08:00 97.1 F 99 16 114/69 88 L Room Air Anesthesia: General Endotracheal-GETA Mental Status: Awake Pain Control: Satisfactory Nausea/Vomiting: None Hydration: Adequate Anesthesia-Related Issues: No Anes. Related Issues
--- NOTE | 2022-08-27 15:34 | PC.NURSE ---
pt's 02 sat 85-88% on room air this am. Placed on 4l with sat of 95%. o2 decreased to 3l. Dr Garcia made aware. requested updrafts. Pt also using IS frequently. with good effect.
[2022-08-28] VITALS: BP 120/62; PULSE 60; RESP 18; TEMP 36.2; O2SAT 97
[2022-08-28] MEDS: Heparin Sodium,Porcine 5,000 UNIT/ML VIAL 5000 UNIT SUBCUT ×2 (02:13→12:36)
[2022-08-28] MEDS: Dextrose 5 % and Lactated Ring 1,000 ML 125 ML IVCONT ×2 (02:13→10:46)
[2022-08-28] MEDS: HYDROmorphone HCl 0.5 MG/0.5 ML SYRINGE IVPUSH ×7 (02:13→22:13)
[2022-08-28 08:00] VITALS: BP 132/79; PULSE 93; RESP 18; TEMP 36.3; O2SAT 95
--- NOTE | 2022-08-28 10:11 | P.PNIM_ITS ---
Subjective Subjective Date of Service: 08/28/22 Interval History: f/u on med consult for FLO, s/p SBO repair interval history: FLO resolved, has some pain, no sob, passing flatus Physical Exam Vital Signs: Vital Signs: Last Vital Signs Temp 97.3 F 08/28/22 08:00 Pulse 93 08/28/22 08:00 Resp 18 08/28/22 08:00 BP 132/79 08/28/22 08:00 Pulse Ox 95 08/28/22 08:00 O2 Del Method 08/28/22 08:00 O2 Flow Rate 2 08/28/22 08:00 BMI result Body Mass Index 31.2 Const: Other: General: AO X 3, no acute distress Resp: CTA bilateral CVS: S1,S2,RRR GI: no BS, no tender Skin: No rash Neuro: motor grossly intact Psych: appropriate affect Objective Data Active Medications Albuterol Sulfate 2.5 mg/ (Ipratropium [place] 0.5 mg) 0 mg INHALE Q2H PRN PRN Reason: Shortness of Breath/Wheezing Heparin Sodium (Porcine) (Heparin Sodium,Porcine 5,000 Unit/Ml Vial) 5,000 unit SUBCUT Q12H [facility] Last Admin: 08/28/22 02:13 Dose: 5,000 unit Documented By: CARLOS Hydromorphone HCl (Hydromorphone Hcl 0.5 Mg/0.5 Ml Syringe) 0.5 mg IVPUSH Q3H PRN; Protocol PRN Reason: Pain, Severe (Pain Scale 7-10) Last Admin: 08/28/22 09:21 Dose: 0.5 mg Documented By: MARY Hydromorphone HCl (Hydromorphone Hcl 0.5 Mg/0.5 Ml Syringe) 0.5 mg IVPUSH Q5M PRN; Protocol PRN Reason: Pain, Moderate (Pain Scale 4-6 Last Admin: 08/26/22 14:20 Dose: 0.5 mg Documented By: FRANCESCA Dextrose/Lactated Ringer's (D5lr) 1,000 mls @ 80 mls/hr IVCONT .[id number] [facility] Last Admin: 08/28/22 02:13 Dose: 125 mls/hr Documented By: CARLOS Multi-Ingred Medicated Throat [place] (Throat [place], Medicated 177 Ml Bottle) 1 spray MUCOUS MEM Q2H PRN PRN Reason: Sore Throat Ondansetron HCl (Ondansetron Hcl 4 Mg/2 Ml Vial) 4 mg IVPUSH Q8H PRN PRN Reason: Nausea Pharmacy Consult (Consult Rx Perform Med Rec) 1 each MISCELLANE ONCE PRN PRN Reason: Consult order Sodium Chloride (0.9 % Sodium Chloride Flush 3 Ml Syringe) 3 ml IVFLUSH QSHIFT [facility] Last Admin: 08/28/22 09:29 Dose: Not Given Documented By: MARY Non-Admin Reason: IV Running Zolpidem Tartrate (Zolpidem Tartrate 5 Mg Tablet) 5 mg PO BEDTIME PRN PRN Reason: Insomnia Labs 08/27/22 05:44 08/27/22 05:44 Microbiology Microbiology Results: Microbiology 08/25/22 21:04 Blood Culture - Preliminary Blood - Venous No growth after 48 hours. 08/25/22 21:04 Blood Culture - Preliminary Blood - Venous No growth after 48 hours. Assessment and Plan (1) FLO (acute kidney injury): Status: Acute (2) Closed fracture scapula, acromion: Status: Acute (3) Acute renal failure: Status: Acute Plan ? 67-year-old male with a PMH significant for?hx of ventral hernia repair with mesh, 5 back surgeries, 2 neck surgeries with another scheduled for 315 2022, congenital bicuspid aortic valve, vasculitis, had arthritis who presented to the ED with abdominal pain, distention, nausea, and vomiting x4 days.? Patient admitted to the hospital under General surgery, hospitals consult for FLO and medical management. SBO--s/p Exploratory Laparotomy, enterolysis 3/, further management by surgery FLO--pre renal, resolved Vasculitis Continue prednisone, leflunomide Hypoxia likely has restrictive lung disease, O2, is Arthritis Continue methotrexate Insomnia Continue trazodone hypoxia--88 ra, likely from atelectasis, O2, incentive spirometry Time Spent With Patient Time: Total time managing care of this patient today ____ minutes. Quality Stroke Does the patient have a stroke diagnosis?: No VTE Prior VTE?: No VTE Risk Level:: Surgical - moderate VTE Device Contraindication: N/A - Device Ordered VTE Drug Contraindication: N/A - Med Ordered
--- NOTE | 2022-08-28 13:53 | PM.PNGS ---
Subjective Subjective Date of Service: 08/28/22 Interval history: pt feeling better now having some clear liquids says passing lots of flatus not stool yet. tolerating po liquids this am well still complaining of pain not walking much - walks with walker Physical Exam Vital Signs: Vital Signs: Last Vital Signs Temp 97.3 F 08/28/22 08:00 Pulse 93 08/28/22 08:00 Resp 18 08/28/22 08:00 BP 132/79 08/28/22 08:00 Pulse Ox 95 08/28/22 08:00 O2 Del Method 08/28/22 08:00 O2 Flow Rate 2 08/28/22 08:00 BMI result Body Mass Index 31.2 Const: General: cooperative, healthy appearing and comfortable Resp: Effort & Inspection: normal respiratory effort Auscultation: clear to auscultation bilaterally Cardio: Rate: regular rate Rhythm: regular rhythm GI: Other: abdo- soft nondistended good bowel sounds Psych: Appearance: grossly normal Mental Status: mental status grossly normal Speech and movement: Normal speech and movement present Insight: Good insight present (Psych) Judgement: Good judgement present (Psych) Objective Data Active Medications Albuterol Sulfate 2.5 mg/ (Ipratropium [place] 0.5 mg) 0 mg INHALE Q2H PRN PRN Reason: Shortness of Breath/Wheezing Heparin Sodium (Porcine) (Heparin Sodium,Porcine 5,000 Unit/Ml Vial) 5,000 unit SUBCUT Q12H [facility] Last Admin: 08/28/22 12:36 Dose: 5,000 unit Documented By: MARY Hydromorphone HCl (Hydromorphone Hcl 0.5 Mg/0.5 Ml Syringe) 0.5 mg IVPUSH Q3H PRN; Protocol PRN Reason: Pain, Severe (Pain Scale 7-10) Last Admin: 08/28/22 12:36 Dose: 0.5 mg Documented By: MARY Hydromorphone HCl (Hydromorphone Hcl 0.5 Mg/0.5 Ml Syringe) 0.5 mg IVPUSH Q5M PRN; Protocol PRN Reason: Pain, Moderate (Pain Scale 4-6 Last Admin: 08/26/22 14:20 Dose: 0.5 mg Documented By: FRANCESCA Dextrose/Lactated Ringer's (D5lr) 1,000 mls @ 80 mls/hr IVCONT .[id number] [facility] Last Admin: 08/28/22 10:46 Dose: 125 mls/hr Documented By: MARY Multi-Ingred Medicated Throat [place] (Throat [place], Medicated 177 Ml Bottle) 1 spray MUCOUS MEM Q2H PRN PRN Reason: Sore Throat Ondansetron HCl (Ondansetron Hcl 4 Mg/2 Ml Vial) 4 mg IVPUSH Q8H PRN PRN Reason: Nausea Pharmacy Consult (Consult Rx Perform Med Rec) 1 each MISCELLANE ONCE PRN PRN Reason: Consult order Sodium Chloride (0.9 % Sodium Chloride Flush 3 Ml Syringe) 3 ml IVFLUSH QSHIFT [facility] Last Admin: 08/28/22 09:29 Dose: Not Given Documented By: MARY Non-Admin Reason: IV Running Zolpidem Tartrate (Zolpidem Tartrate 5 Mg Tablet) 5 mg PO BEDTIME PRN PRN Reason: Insomnia Labs 08/27/22 05:44 08/27/22 05:44 Microbiology Microbiology Results: Microbiology 08/25/22 21:04 Blood Culture - Preliminary Blood - Venous No growth after 48 hours. 08/25/22 21:04 Blood Culture - Preliminary Blood - Venous No growth after 48 hours. Procedures Date of Service Date of Service: 08/28/22 Progress Note: A&P Assessment and plan (1) Complete small bowel obstruction: Status: Acute Plan pod#3 sp expl lap and yony for sbo - doing well - pasisng gas no bm but tolerating po liquids around his ng tube cont with liquids as tolerated clamp ng still consider dc tomorrow if bm and if he has good progression wth diet. po pain meds Time Spent With Patient Time: Total time managing care of this patient today ____ minutes. Quality Stroke Does the patient have a stroke diagnosis?: No VTE Prior VTE?: No VTE Risk Level:: Surgical - moderate VTE Device Contraindication: N/A - Device Ordered VTE Drug Contraindication: N/A - Med Ordered
--- NOTE | 2022-08-28 15:06 | MHC.CM.PN ---
PT REPORTS HE LIVES WITH HIS AND IS INDEPENDENT WITH CARE HE HAS A WALKER, CANE AND NEBULIZER AT HOME NO SERVICES + COVID [facility] COPY OF HCP REQUESTED PCP: TERESITA DONAHUE IMM DELIVERED CURRENT DC PLAN IS HOME WITH NO SERVICES FAMILY TO TRANSPORT
[2022-08-28 15:56] VITALS: BP 135/81; PULSE 100; RESP 16; TEMP 36.6; O2SAT 96
[2022-08-28 16:00] VITALS: PULSE 102; RESP 22; O2SAT 96
[2022-08-28] MEDS: 0.9 % Sodium Chloride Flush 3 ML SYRINGE IVFLUSH ×2 (17:44→22:13)
[2022-08-28 23:29] VITALS: BP 124/75; PULSE 66; RESP 17; TEMP 36.7; O2SAT 94
[2022-08-29] MEDS: 0.9 % Sodium Chloride Flush 3 ML SYRINGE IVFLUSH (01:26)
[2022-08-29] MEDS: Heparin Sodium,Porcine 5,000 UNIT/ML VIAL 5000 UNIT SUBCUT ×2 (01:26→14:39)
[2022-08-29] MEDS: HYDROmorphone HCl 0.5 MG/0.5 ML SYRINGE IVPUSH ×7 (01:27→21:13)
[2022-08-29] MEDS: Dextrose 5 % and Lactated Ring 1,000 ML 80 ML IVCONT (04:37)
[2022-08-29 08:00] VITALS: BP 136/99; PULSE 103; RESP 20; TEMP 36.9; O2SAT 90
[2022-08-29 08:42] VITALS: PULSE 102; RESP 18; O2SAT 92
--- NOTE | 2022-08-29 09:57 | HO.PM.IMPN ---
Subjective Subjective Date of Service: 08/29/22 Interval History: f/u on med consult for FLO, s/p SBO repair interval history: FLO resolved, has some pain, no sob, passing flatus and had bm yesterday, still has ngt Review of Systems no sob Physical Exam Vital Signs: Vital Signs: Last Vital Signs Temp 98.4 F 08/29/22 08:00 Pulse 102 H 08/29/22 08:42 Resp 18 08/29/22 08:42 BP 136/99 H 08/29/22 08:00 Pulse Ox 90 L 08/29/22 08:00 O2 Del Method 08/29/22 08:00 O2 Flow Rate 4 08/28/22 23:29 BMI result Body Mass Index 31.2 Objective Data Active Medications Albuterol Sulfate 2.5 mg/ (Ipratropium [place] 0.5 mg) 0 mg INHALE Q2H PRN PRN Reason: Shortness of Breath/Wheezing Last Admin: 08/29/22 08:40 Dose: 1 each Documented By: CONOR Heparin Sodium (Porcine) (Heparin Sodium,Porcine 5,000 Unit/Ml Vial) 5,000 unit SUBCUT Q12H [facility] Last Admin: 08/29/22 01:26 Dose: 5,000 unit Documented By: ALEXUS Hydromorphone HCl (Hydromorphone Hcl 0.5 Mg/0.5 Ml Syringe) 0.5 mg IVPUSH Q3H PRN; Protocol PRN Reason: Pain, Severe (Pain Scale 7-10) Last Admin: 08/29/22 08:23 Dose: 0.5 mg Documented By: MARY Hydromorphone HCl (Hydromorphone Hcl 0.5 Mg/0.5 Ml Syringe) 0.5 mg IVPUSH Q5M PRN; Protocol PRN Reason: Pain, Moderate (Pain Scale 4-6 Last Admin: 08/26/22 14:20 Dose: 0.5 mg Documented By: FRANCESCA Multi-Ingred Medicated Throat [place] (Throat [place], Medicated 177 Ml Bottle) 1 spray MUCOUS MEM Q2H PRN PRN Reason: Sore Throat Ondansetron HCl (Ondansetron Hcl 4 Mg/2 Ml Vial) 4 mg IVPUSH Q8H PRN PRN Reason: Nausea Pharmacy Consult (Consult Rx Perform Med Rec) 1 each MISCELLANE ONCE PRN PRN Reason: Consult order Sodium Chloride (0.9 % Sodium Chloride Flush 3 Ml Syringe) 3 ml IVFLUSH QSHIFT [facility] Last Admin: 08/29/22 01:26 Dose: 3 ml Documented By: ALEXUS Zolpidem Tartrate (Zolpidem Tartrate 5 Mg Tablet) 5 mg PO BEDTIME PRN PRN Reason: Insomnia Labs 08/27/22 05:44 08/27/22 05:44 Assessment and Plan (1) FLO (acute kidney injury): Status: Acute (2) Closed fracture scapula, acromion: Status: Acute (3) Acute renal failure: Status: Acute Plan ? 67-year-old male with a PMH significant for?hx of ventral hernia repair with mesh, 5 back surgeries, 2 neck surgeries with another scheduled for 315 2022, congenital bicuspid aortic valve, vasculitis, had arthritis who presented to the ED with abdominal pain, distention, nausea, and vomiting x4 days.? Patient admitted to the hospital under General surgery, hospitals consult for FLO and medical management. SBO--s/p Exploratory Laparotomy, enterolysis 08/27, further management by surgery FLO--pre renal, resolved Vasculitis Continue prednisone, leflunomide Hypoxia likely has restrictive lung disease, O2, is Arthritis Continue methotrexate Insomnia Continue trazodone hypoxia--88 ra, likely from atelectasis, O2, incentive spirometry, cxr and continue to monitor Time Spent With Patient Time: Total time managing care of this patient today ____ minutes. Quality Stroke Does the patient have a stroke diagnosis?: No VTE Prior VTE?: No VTE Risk Level:: Surgical - moderate VTE Device Contraindication: N/A - Device Ordered VTE Drug Contraindication: N/A - Med Ordered
--- NOTE | 2022-08-29 14:02 | P.PNGS_ITS ---
Subjective Subjective Date of Service: 08/29/22 Interval history: feeling good passing gas and stool and drinking well complaining of abdo pain no n/v Physical Exam Vital Signs: Vital Signs: Last Vital Signs Temp 98.4 F 08/29/22 08:00 Pulse 102 H 08/29/22 08:42 Resp 18 08/29/22 08:42 BP 136/99 H 08/29/22 08:00 Pulse Ox 90 L 08/29/22 08:00 O2 Del Method 08/29/22 08:00 O2 Flow Rate 4 08/28/22 23:29 BMI result Body Mass Index 31.2 GI: Other: abdo softer less distended, better bowel sounds nontender incision looks great Objective Data Active Medications Albuterol Sulfate 2.5 mg/ (Ipratropium [place] 0.5 mg) 0 mg INHALE Q2H PRN PRN Reason: Shortness of Breath/Wheezing Last Admin: 08/29/22 08:40 Dose: 1 each Documented By: CONOR Heparin Sodium (Porcine) (Heparin Sodium,Porcine 5,000 Unit/Ml Vial) 5,000 unit SUBCUT Q12H [facility] Last Admin: 08/29/22 01:26 Dose: 5,000 unit Documented By: ALEXUS Hydromorphone HCl (Hydromorphone Hcl 0.5 Mg/0.5 Ml Syringe) 0.5 mg IVPUSH Q3H PRN; Protocol PRN Reason: Pain, Severe (Pain Scale 7-10) Last Admin: 08/29/22 11:27 Dose: 0.5 mg Documented By: MARY Hydromorphone HCl (Hydromorphone Hcl 0.5 Mg/0.5 Ml Syringe) 0.5 mg IVPUSH Q5M PRN; Protocol PRN Reason: Pain, Moderate (Pain Scale 4-6 Last Admin: 08/26/22 14:20 Dose: 0.5 mg Documented By: FRANCESCA Multi-Ingred Medicated Throat [place] (Throat [place], Medicated 177 Ml Bottle) 1 spray MUCOUS MEM Q2H PRN PRN Reason: Sore Throat Ondansetron HCl (Ondansetron Hcl 4 Mg/2 Ml Vial) 4 mg IVPUSH Q8H PRN PRN Reason: Nausea Pharmacy Consult (Consult Rx Perform Med Rec) 1 each MISCELLANE ONCE PRN PRN Reason: Consult order Sodium Chloride (0.9 % Sodium Chloride Flush 3 Ml Syringe) 3 ml IVFLUSH QSHIFT [facility] Last Admin: 08/29/22 01:26 Dose: 3 ml Documented By: ALEXUS Zolpidem Tartrate (Zolpidem Tartrate 5 Mg Tablet) 5 mg PO BEDTIME PRN PRN Reason: Insomnia Labs 08/27/22 05:44 08/27/22 05:44 Procedures Date of Service Date of Service: 08/29/22 Progress Note: A&P Assessment and plan (1) SBO (small bowel obstruction): Status: Acute Plan pt doing well sp yony for sbo and now doing well passing gas and stool and having no issues with liquid diet still complaining of abdo pain he says but looks comfortable plan to advance diet po pain meds PT to help pt move getting closer to being able to be dc Time Spent With Patient Time: Total time managing care of this patient today ____ minutes. Quality Stroke Does the patient have a stroke diagnosis?: No VTE Prior VTE?: No VTE Risk Level:: Surgical - moderate VTE Device Contraindication: N/A - Device Ordered VTE Drug Contraindication: N/A - Med Ordered
[2022-08-29 15:43] VITALS: BP 130/74; PULSE 86; RESP 16; TEMP 36.5; O2SAT 96
[2022-08-29 15:46] VITALS: PULSE 78; RESP 19
[2022-08-29] MEDS: ondansetron HCL 4 MG/2 ML VIAL IVPUSH (22:37)
[2022-08-30] VITALS: BP 175/91; PULSE 92; RESP 18; TEMP 36.2; O2SAT 95
[2022-08-30] MEDS: HYDROmorphone HCl 0.5 MG/0.5 ML SYRINGE IVPUSH ×8 (00:03→22:30)
[2022-08-30 00:07] VITALS: BP 101/60
[2022-08-30] MEDS: 0.9 % Sodium Chloride Flush 3 ML SYRINGE IVFLUSH ×3 (00:54→16:05)
[2022-08-30] MEDS: Heparin Sodium,Porcine 5,000 UNIT/ML VIAL 5000 UNIT SUBCUT ×2 (02:57→12:42)
[2022-08-30 04:16] VITALS: BP 122/71; PULSE 59; RESP 16; TEMP 36.1; O2SAT 93
[2022-08-30 07:21] VITALS: BP 137/82; PULSE 82; RESP 18; TEMP 36.5; O2SAT 92
[2022-08-30] MEDS: guaiFENesin LA 600 MG TAB.ER.12H PO ×2 (08:45→19:36)
--- NOTE | 2022-08-30 09:49 | P.PNIM_ITS ---
Subjective Subjective Date of Service: 08/30/22 Interval History: f/u on med consult for FLO, s/p SBO repair interval history: feels congested, eating regular food Review of Systems no sob Physical Exam Vital Signs: Vital Signs: Last Vital Signs Temp 97.7 F 08/30/22 07:21 Pulse 82 08/30/22 07:21 Resp 18 08/30/22 07:21 BP 137/82 08/30/22 07:21 Pulse Ox 92 08/30/22 07:21 O2 Del Method 08/30/22 07:21 O2 Flow Rate 3 08/30/22 07:21 BMI result Body Mass Index 31.2 Const: Other: General: AO X 3, no acute distress Resp: CTA bilateral CVS: S1,S2,RRR GI: no BS, no tender Skin: No rash Neuro: motor grossly intact Psych: appropriate affect Objective Data Active Medications Albuterol Sulfate 2.5 mg/ (Ipratropium [place] 0.5 mg) 0 mg INHALE Q2H PRN PRN Reason: Shortness of Breath/Wheezing Last Admin: 08/29/22 08:40 Dose: 1 each Documented By: CONOR Guaifenesin (Guaifenesin [place] 600 Mg Tab.Er.12h) 600 mg PO BID [facility] Last Admin: 08/30/22 08:45 Dose: 600 mg Documented By: MARY Heparin Sodium (Porcine) (Heparin Sodium,Porcine 5,000 Unit/Ml Vial) 5,000 unit SUBCUT Q12H [facility] Last Admin: 08/30/22 02:57 Dose: 5,000 unit Documented By: ALEXUS Hydromorphone HCl (Hydromorphone Hcl 0.5 Mg/0.5 Ml Syringe) 0.5 mg IVPUSH Q3H PRN; Protocol PRN Reason: Pain, Severe (Pain Scale 7-10) Last Admin: 08/30/22 09:12 Dose: 0.5 mg Documented By: MARY Hydromorphone HCl (Hydromorphone Hcl 0.5 Mg/0.5 Ml Syringe) 0.5 mg IVPUSH Q5M PRN; Protocol PRN Reason: Pain, Moderate (Pain Scale 4-6 Last Admin: 08/26/22 14:20 Dose: 0.5 mg Documented By: HO.METZNAT Multi-Ingred Medicated Throat [place] (Throat [place], Medicated 177 Ml Bottle) 1 spray MUCOUS MEM Q2H PRN PRN Reason: Sore Throat Ondansetron HCl (Ondansetron Hcl 4 Mg/2 Ml Vial) 4 mg IVPUSH Q8H PRN PRN Reason: Nausea Last Admin: 08/29/22 22:37 Dose: 4 mg Documented By: ALEXUS Pharmacy Consult (Consult Rx Perform Med Rec) 1 each MISCELLANE ONCE PRN PRN Reason: Consult order Sodium Chloride (0.9 % Sodium Chloride Flush 3 Ml Syringe) 3 ml IVFLUSH QSHIFT [facility] Last Admin: 08/30/22 08:47 Dose: 3 ml Documented By: MARY Zolpidem Tartrate (Zolpidem Tartrate 5 Mg Tablet) 5 mg PO BEDTIME PRN PRN Reason: Insomnia Labs 08/27/22 05:44 08/27/22 05:44 Assessment and Plan (1) FLO (acute kidney injury): Status: Acute (2) Closed fracture scapula, acromion: Status: Acute (3) Acute renal failure: Status: Acute Plan ? 67-year-old male with a PMH significant for?hx of ventral hernia repair with mesh, 5 back surgeries, 2 neck surgeries with another scheduled for 315 2022, congenital bicuspid aortic valve, vasculitis, had arthritis who presented to the ED with abdominal pain, distention, nausea, and vomiting x4 days.? Patient admitted to the hospital under General surgery, hospitals consult for FLO and medical management. SBO--s/p Exploratory Laparotomy, enterolysis 3/, further management by surgery FLO--pre renal, resolved Vasculitis Continue prednisone, leflunomide Hypoxia likely has restrictive lung disease, O2, is, add Mucinex for congestion Arthritis Continue methotrexate Insomnia Continue trazodone hypoxia--88 ra, likely from atelectasis, O2, incentive spirometry, cxr and continue to monitor out of bed, consider PT eval Time Spent With Patient Time: Total time managing care of this patient today ____ minutes. Quality Stroke Does the patient have a stroke diagnosis?: No VTE Prior VTE?: No VTE Risk Level:: Surgical - moderate VTE Device Contraindication: N/A - Device Ordered VTE Drug Contraindication: N/A - Med Ordered
[2022-08-30] MEDS: ondansetron HCL 4 MG/2 ML VIAL IVPUSH (10:30)
--- NOTE | 2022-08-30 15:09 | P.PNGS_ITS ---
Subjective Subjective Date of Service: 08/30/22 Interval history: Patient reports increased secretions which is making him choke. As result patient had some vomiting. Reports some abdominal pain but is also passing flatus and moving his bowels. He has been on a regular diet seems to be tolerating this. Physical Exam Vital Signs: Vital Signs: Last Vital Signs Temp 97.7 F 08/30/22 07:21 Pulse 82 08/30/22 07:21 Resp 18 08/30/22 07:21 BP 137/82 08/30/22 07:21 Pulse Ox 92 08/30/22 07:21 O2 Del Method 08/30/22 07:21 O2 Flow Rate 3 08/30/22 07:21 BMI result Body Mass Index 31.2 Const: General: alert Nutritional Appearance: well nourished Or ientation/consciousness: patient oriented x3 Resp: Other: Breathing comfortably on nasal cannula. Respiratory distress Effort & Inspection: normal respiratory effort GI: Other: Abdominal incision is clean, dry, and intact without redness or discharge. Bowel sounds are active. No tympany to percussion Skin: Other: Warm and dry, normal color Neuro: General: patient oriented x3 Extrem: Other: No edema Objective Data Active Medications Albuterol Sulfate 2.5 mg/ (Ipratropium [place] 0.5 mg) 0 mg INHALE Q2H PRN PRN Reason: Shortness of Breath/Wheezing Last Admin: 08/29/22 08:40 Dose: 1 each Documented By: CONOR Guaifenesin (Guaifenesin [place] 600 Mg Tab.Er.12h) 600 mg PO BID [facility] Last Admin: 08/30/22 08:45 Dose: 600 mg Documented By: MARY Heparin Sodium (Porcine) (Heparin Sodium,Porcine 5,000 Unit/Ml Vial) 5,000 unit SUBCUT Q12H [facility] Last Admin: 08/30/22 12:42 Dose: 5,000 unit Documented By: MARY Hydromorphone HCl (Hydromorphone Hcl 0.5 Mg/0.5 Ml Syringe) 0.5 mg IVPUSH Q3H PRN; Protocol PRN Reason: Pain, Severe (Pain Scale 7-10) Last Admin: 08/30/22 12:42 Dose: 0.5 mg Documented By: MARY Hydromorphone HCl (Hydromorphone Hcl 0.5 Mg/0.5 Ml Syringe) 0.5 mg IVPUSH Q5M PRN; Protocol PRN Reason: Pain, Moderate (Pain Scale 4-6 Last Admin: 08/26/22 14:20 Dose: 0.5 mg Documented By: FRANCESCA Multi-Ingred Medicated Throat [place] (Throat [place], Medicated 177 Ml Bottle) 1 spray MUCOUS MEM Q2H PRN PRN Reason: Sore Throat Ondansetron HCl (Ondansetron Hcl 4 Mg/2 Ml Vial) 4 mg IVPUSH Q8H PRN PRN Reason: Nausea Last Admin: 08/30/22 10:30 Dose: 4 mg Documented By: MARY Pharmacy Consult (Consult Rx Perform Med Rec) 1 each MISCELLANE ONCE PRN PRN Reason: Consult order Sodium Chloride (0.9 % Sodium Chloride Flush 3 Ml Syringe) 3 ml IVFLUSH QSHIFT [facility] Last Admin: 08/30/22 08:47 Dose: 3 ml Documented By: MARY Zolpidem Tartrate (Zolpidem Tartrate 5 Mg Tablet) 5 mg PO BEDTIME PRN PRN Reason: Insomnia Labs 08/27/22 05:44 08/27/22 05:44 Procedures Date of Service Date of Service: 08/30/22 Progress Note: A&P Assessment and plan (1) SBO (small bowel obstruction): Status: Acute Plan Small-bowel obstruction due to adhesions, s/p exploratory laparotomy with lysis of adhesions. Patient is now passing flatus and moving his bowels. He does report some difficulty with secretions which he is choking on. Discussed with Dr. Garcia this morning. Encouraged ambulation with the walker. Time Spent With Patient Time: Total time managing care of this patient today ____ minutes. Quality Stroke Does the patient have a stroke diagnosis?: No VTE Prior VTE?: No VTE Risk Level:: Surgical - moderate VTE Device Contraindication: N/A - Device Ordered VTE Drug Contraindication: N/A - Med Ordered
--- NOTE | 2022-08-30 15:19 | MHC.CLN ---
Addendum entered by Madyson Thurman RN 08/31/22 09:36: IMM 08/30 IN CHART Original Note: F/U DIET=REGULAR. ADDING ENSURE TID PER PRIOR CONVERSATION WITH PATIENT. PROVIDES ADDITIONAL 1050 KCALS, 60 G PROTEIN. CURRENT INTAKE VARIABLE, 25-100%.
[2022-08-30 15:48] VITALS: BP 127/75; PULSE 91; RESP 15; TEMP 36.9; O2SAT 92
[2022-08-30 23:47] VITALS: BP 126/75; PULSE 81; RESP 18; TEMP 36; O2SAT 90
[2022-08-31] MEDS: 0.9 % Sodium Chloride Flush 3 ML SYRINGE IVFLUSH ×2 (00:07→09:13)
[2022-08-31] MEDS: HYDROmorphone HCl 0.5 MG/0.5 ML SYRINGE IVPUSH ×4 (01:40→14:13)
[2022-08-31] MEDS: Heparin Sodium,Porcine 5,000 UNIT/ML VIAL 5000 UNIT SUBCUT ×2 (02:07→14:13)
[2022-08-31] MEDS: ondansetron HCL 4 MG/2 ML VIAL IVPUSH (06:05)
[2022-08-31 07:45] VITALS: BP 117/73; PULSE 86; RESP 17; TEMP 36; O2SAT 93
--- NOTE | 2022-08-31 08:46 | MHC.CM.PN ---
HOME TODAY - SELF CARE RN AWARE OF PLAN.
[2022-08-31] MEDS: guaiFENesin LA 600 MG TAB.ER.12H PO (09:13)
[2022-08-31 09:44] VITALS: PULSE 93; RESP 18; O2SAT 90
--- NOTE | 2022-08-31 14:25 | P.F2F_ITS ---
Service Date Service Date: 08/31/22 Encounter Date of encounter: 08/31/22 Reasons for Services Signs and symptoms assessed: abdominal pain, abdominal tenderness, PO intake, GI function, mobility Reason for physical therapy: home safety and mobility, therapeutic exercises and gait/transfer training Homebound: Leaving the home is medically contraindicated at this time without the asist of a device and/or another person due th the listed conditions above and below. Reason homebound: leg weakness, weakness related to hospital stay and unable to drive Homebound supporting statement: Mr. Millan was admitted for SBO requiring exploratory laparotomy with RONAN. He is weak at baseline and had further decline due to hospital stay. Has history of cervical surgery with fracture of one inez in place. Certification: Based on the above findings, I certify that this patient is confined to the home and needs intermittent shelter care, physical therapy and/or speech therapy, or continues to need occupational therapy. The patient is under my care, and I have initiated the establishment of the plan of care. The patient will be followed by a physician who will periodically review the plan of care. Time Spent With Patient Time: Total time managing care of this patient today ____ minutes.
--- NOTE | 2022-08-31 14:30 | MHC.CM.PN ---
PATIENT STATES THAT HE WANTS TO GO HOME PER REVIEW OF PREVIOUS NOTES, PATIENT HAS BEEN FAIRLY INDEPENDENT AT HOME AND CURRENTLY IS [facility]. HE DENIES NEED TO STAY AND SAYS HIS IS ON THE WAY. PATIENT IS AGREEABLE TO [facility] REFERRAL, NOW PLACED. SURGEON AND RN AWARE
--- NOTE | 2022-08-31 15:57 | MHC.CM.PN ---
POST DC NOTE- [facility] IS WILLING TO ACCEPT. CURRENTLY AWAITING SIGNED DC SUMMARY RN AWARE
--- NOTE | 2022-09-01 09:28 | MHC.CM.PN ---
POST DC NOTE - DC SUMMARY FAXED DIRECTLY TO [facility] @[phone] ALSO UPLOADED INTO [facility]
== END 2022-08-31 15:51 | disposition home health service (06) | DRG 336 ==
LOC: HO.ED 08-26 01:42 → HO.EDOVER 08-26 02:03 → HO.S3 08-26 11:57
PROVIDERS: Internal Medicine; Physician Assistant; Admitting Provider Surgery; Emergency Provider Emergency Medicine Emergency Medical Services; PCP Physician Assistant Medical; Visit Provider Surgery
PROC: 0DN80ZZ Release Small Intestine, Open Approach (ICD-10-PCS; CPT 49000; principal; 2022-08-26 09:40)
DX: K56.52 Intestinal adhesions [bands] with complete obstruction (principal); N17.9 Acute kidney failure, unspecified; R09.02 Hypoxemia; G89.18 Other acute postprocedural pain; E86.0 Dehydration; G47.00 Insomnia, unspecified; I77.6 Arteritis, unspecified; M06.9 Rheumatoid arthritis, unspecified; Z20.822 Contact with and (suspected) exposure to COVID-19; Z79.52 Long term (current) use of systemic steroids; Z79.899 Other long term (current) drug therapy
CPT/HCPCS: 0241U; 36415; 71045; 74177; 80048; 80053; 83605; 83690; 83735; 84484; 85025; 85610; 85730; 86850; 86900; 86901; 87040; 93005; 97162; 99285; C1758; J0131; J0461; J0690; J0696; J1100; J1170; J1643; J2370; J2405; J2765; J2795; J3010; Q9967

== ENCOUNTER → 2022-09-09 09:18 | Outpatient (BNVA) | payer MEDICARE, SELFPAY | PROVIDERS: PCP Physician Assistant Medical; Visit Provider Surgery | DX: R11.2 Nausea with vomiting, unspecified (principal); K56.601 Complete intestinal obstruction, unspecified as to cause | CPT/HCPCS: 99212 ==